=== PATIENT | female | born 1935 | race Caucasian/White ===

== ENCOUNTER 2018-06-04 08:47 | Inpatient (IN) | payer OTHER, SELFPAY ==
[2018-06-01 13:33] VITALS: BMI 27.4
[2018-06-04] VITALS (13 sets, daily range): BP systolic 101–133; BP diastolic 57–76; PULSE 16–88; RESP 12–18; TEMP 36–37.1; O2SAT 92–97; BMI 28.9
--- NOTE | 2018-06-04 | DI.RAD.S_ITS ---
PROCEDURE: XR KNEE RT 1TO2V INDICATIONS: POST OPERATIVE RIGHT KNEE TECHNIQUE: 2 view(s) of the knee acquired. COMPARISON: [facility], , KNEE 1-2 VIEWS RIGHT, 09/01/2011, 15:50. FINDINGS: Bones: Patient is status post knee joint arthroplasty. Hardware components are in expected positions. Visualized bony structures are intact. Soft tissues: Overlying postoperative changes are noted. IMPRESSION: Normal alignment after right total knee arthroplasty. A surgical drain overlies the operative bed. Dictated by: Hermlio Malin M.D. on 06/04/2018 at 15:34 Approved by: Hermilo Malin M.D. on 06/04/2018 at 15:35
[2018-06-04] MEDS: LACTATED RINGERS 1,000 ML 42 ML IV ×2 (09:58→13:22)
[2018-06-04] MEDS: PREGABALIN 75 MG CAPSULE PO (09:59)
[2018-06-04] MEDS: ACETAMINOPHEN 325 MG TABLET 975 MG PO (09:59)
[2018-06-04] MEDS: VANCOMYCIN 1,000 MG/200 ML FROZ.PIGGY 200 MG IV (10:37)
--- NOTE | 2018-06-04 10:48 | SUR.PREOP ---
Hold Meloxicam per Dr. Wills.
--- NOTE | 2018-06-04 10:52 | PM.PREOP ---
Pre-operative Note Interval Note History & Physical reviewed/Exam performed by Physician: Yes Changes to H&P: No
--- NOTE | 2018-06-04 12:31 | SUR.PREOP ---
Pt c/o severe itching to her scalp, pink scalp noted. Vanco rate decreased to 100ml/hr. Dr. Couch notified regarding symptoms and med rate change. Pt reported scalp itching improved with rate change. Vanco infusion completed.
--- NOTE | 2018-06-04 13:07 | SUR.OPER ---
Supine on padded OR bed. Pillow under head, arms secured on padded armboards <90 degree abduction. Safety belt across torso. Non-operative leg secured with tape over blanket over lower leg. Operative leg secured in De[employer]/Gerald positioner. Foam padded brace at thigh of operative leg.
[2018-06-04] MEDS: BUPIVACAINE 0.5% W/ EPI (PF) 20 ML, BUPIVACAINE LIPOSOME 266 MG, SODIUM CHLORIDE 0.9% 8... INJ (13:24)
[2018-06-04] MEDS: BUPIVACAINE 0.5% W/ EPI (PF) 10 ML, TRANEXAMIC ACID 1,000 MG, SODIUM CHLORIDE 0.9% 20 ML INJ (13:25)
[2018-06-04] MEDS: LIDOCAINE 1% W/EPI INJ 20 ML INJ (13:29)
--- NOTE | 2018-06-04 14:54 | PM.OP.1 ---
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 The nature of the procedure including the risks and benefits, alternatives, postoperative course and expected outcome were discussed and all questions answered. Consent was obtained. Operative site confirmed and marked. Surgeon: Gerry Wills Automobile Washer Steam: Luis E Curtis Anesthesia Type: General, Spinal and Local Operative Notes Findings: There was gross loosening of the tibia which had fallen into flexion. The tibial component has subsided into the bone especially posteriorly. No obvious loosening of the femoral component or patellofemoral component. Both femoral and tibial components were revised as noted below. No evidence of infection. Good bone quality. Closure Type: primary Specimen(s): none sent Prosthetic devices, grafts, tissues, transplants, or devices: Baca and [employer] lesion revision system. For femur and 3 tibia. 5 mm distal medial lateral augments on the femoral component with a 16 x 160 stem and 4 mm offset. 10 mm full augment on the tibial component with a 15 x 120 stem. Applied: implant(s) Estimated Blood Loss (mL): 75 Blood products transfused: none Tourniquet time (min): 41 Procedure in detail: The patient was taken to operative suite and given prophylactic antibiotics prior to surgery. The lateral aspect of the knee was prepped and the joint was injected with 20 cc of 1% lidocaine. The knee was then prepped and draped in usual sterile fashion. The previous 12 cm anterior incision was utilized. A medial parapatellar arthrotomy was performed. There was significant synovitis which was resected. Synovial tissue and swabs were sent for culture. There is no gross sign of infection. The femoral component did not appear to be loose. The tibial component was grossly loose and had migrated into flexion. The femoral component was removed with osteotome without significant bone loss. The tibial component was removed by hand and then remaining cement was removed with osteotome. There was no significant bone loss with implant removal of that there had been significant subsidence especially posteriorly on the tibia with significant loss of bone. The femoral canal was reamed until there was a tight fit and the proximal femur prepared. A 5 mm distal cut was made. The femur was sized. No posterior augments were acquired. The tibial canal was then reamed until a tight fit and the proximal tibia prepared. The cut took significant bone at least 12 mm anteriorly. This corresponded to approximately 6 mm posteriorly on the lateral side and 2 mm posteriorly on the medial side. Trial components were placed the knee was stable with a posteriorly constrained 15 mm tray along with a 10 mm augment of the tibial tray. The trial components were removed. The knee was copiously irrigated. The soft tissues were injected with a standard solution of Exparel and ropivacaine. The final components were cemented in place with vacuum mixed bone cement. The knee was held in extension with the trial liner until the cement had fully cured. The knee was again trialed in a 15 mm posterior stabilized tibial tray was selected. The knee was again irrigated. The extensor mechanism was closed with interrupted 1. Vicryl and a running 2. Quill suture. Subcutaneous tissue closed with 2 Vicryl and the skin with jacek. A Hemovac drain was placed prior to closure. A stefan dressing was applied. The patient tolerated hear well and was returned recovery room in good condition. Complications: none Condition: stable Disposition: PACU Plan for aftercare: Standard protocol for total knee arthroplasty. Continue antibiotics until cultures negative. DC drain at 24 hr.
--- NOTE | 2018-06-04 16:29 | SUR.PHASEI ---
1538 late entry -to room 227, bed down and locked, call light within reach, clothing bag and glasses to room. Daughter (former CS/surg employee present. Right knee dressing remains CDI, TRACEY remains on, Hemovac remains clamped. Skin warm and dry, resp even and regular, talking, tolerated ice/water. well.
[2018-06-04] MEDS: LACTATED RINGERS 1,000 ML 125 ML IV (18:09)
[2018-06-04] MEDS: HYDROCODONE/ACET 5/325 TABLET 2 TAB PO (18:09)
[2018-06-04] MEDS: METFORMIN HCL 500 MG TABLET 250 MG PO (20:48)
--- NOTE | 2018-06-04 21:56 | PC.NURSE ---
Pt desats to 87% with sleep. Placed pt on 2L per nc and sats increase to 96%.
[2018-06-04] MEDS: CEFAZOLIN 2 GM/100 ML FROZ.PIGGY IV (22:26)
--- NOTE | 2018-06-04 23:26 | PC.NURSE ---
Addendum entered and electronically signed by Olga Lidia Bryant R.N. 06/04/18 23:51: Pain charted for hydrocodone at 1800 med pass as pain in hip, it was pain in knee. Original Note: Voiding on bed tineo, Not ambulating and no PT eval yet. Bilateral LL edema +1, pain 4/10 controlled with 1 hydrocodone 5/325. HS blood glucose 171. Pt on Metformin.
[2018-06-05] VITALS (10 sets, daily range): BP systolic 111–133; BP diastolic 54–67; PULSE 64–78; RESP 16–20; TEMP 36.1–36.8; O2SAT 94–98
--- NOTE | 2018-06-05 01:14 | PC.NURSE ---
Addendum entered by Marily King R.N. 06/05/18 06:09: Complains of 6/10 pain in right knee; medicated with Vicodin but declined offer of ice pack. O2 sat mid to upper 90's so O2 removed and will monitor to assure sats remain in 90's. Original Note: Addendum entered by Marily King R.N. 06/05/18 04:00: O2 sat 98% so oxygen decreased to 1L/min Original Note: Patient asleep since shift change, now awakened for VS and assessment. Is alert and oriented. Breath sounds diminished in left mid/lower lobes and right LL. On oxygen at 2L/min with sat of 95%; continuous pulse oximetry per routine epidural orders. HR irregularly irregular. Denies nausea. BT hypoactive; denies flatus. Has voided 200cc since return from surgery; used bedpan. Denies dysuria, frequency or urgency. Is able to move self in bed with some assistance; bed tilted to right to change pressure. TRACEY dressing to right LE intact with no drainage noted; leg is also wrapped with luis a. Hemovac is intact and compressed. CMS intact bilaterally. Is able to move leg but only able to lift slightly off bed. Wearing bilateral calf SCD's. Denies pain at this time. Fall risk score is moderate; bed alarm is activated.
[2018-06-05] MEDS: LACTATED RINGERS 1,000 ML 125 ML IV (02:46)
[2018-06-05 05:32] LABS: Hematocrit 34.6 % (36-46)
[2018-06-05] MEDS: CEFAZOLIN 2 GM/100 ML FROZ.PIGGY IV ×3 (05:51→21:29)
[2018-06-05] MEDS: HYDROCODONE/ACET 5/325 TABLET 2 TAB PO ×5 (06:00→21:38)
[2018-06-05] MEDS: FENOFIBRATE 160 MG TABLET PO (08:53)
[2018-06-05] MEDS: ATORVASTATIN 20 MG TABLET PO (08:53)
[2018-06-05] MEDS: ASPIRIN EC 81 MG TABLET PO (08:53)
[2018-06-05] MEDS: METFORMIN HCL 500 MG TABLET 250 MG PO ×2 (08:53→20:09)
--- NOTE | 2018-06-05 09:34 | PM.PNPO.1 ---
Subjective Date Patient Seen: 06/05/18 Time Patient Seen: 09:34 Interval history: POD 1 s/p right knee revision arthroplasty with Dr. Wills. Patient's pain was well controlled. She has not been up with PT yet. She is voiding without difficulty. Exam Vital Signs (past 8 hours): - 06/05/18 04:48 06/05/18 08:00 06/05/18 09:00 Temperature 97.7 F 97.3 F L Pulse Rate 75 66 Respiratory Rate 16 16 Blood Pressure 121/61 111/59 L Pulse Oximetry 96 94 96 06/05/18 09:33 Temperature Pulse Rate Respiratory Rate Blood Pressure Pulse Oximetry 98 Fraction of Inspired Oxygen 21 Oxygen Delivery Method Room Air Oxygen Flow Rate 0 Narrative Exam Narrative: Patient sitting up in bed in NAD. She is alert and oriented x3. Dressing on right knee is CDI. Hemovac drain in place. She is able to actively dorsiflex and plantar flex. Sensation intact light touch throughout bilateral lower extremities. Pulses are symmetrical. Objective Labs Result Diagrams: 06/05/18 04:54 Labs: Laboratory Results - last 24 hr 06/05/18 04:54 Hgb 11.0 L Hct 34.6 L Assessment & Plan Post-op (1) S/P revision of total knee: Postoperative Procedures Operation Date: 06/04/18 11:15 Actual Procedures Side Surgeon p Total Knee Arthroplasty Revision Right Gerry Wills MD Patient will mobilize with PT today. Continue ancef 2g Q8HR until cultures are back. Remove drain today. Continue current pain medication. Patient cannot take ASA due to GI bleed in the past. Patient will DC once mobilizing safely, and pain adequately controlled either tonight or tomorrow. Quality VTE Deep Vein Thrombosis/Pulmonary Embolism Present on Admission: No
--- NOTE | 2018-06-05 09:46 | PT.IIE ---
Current Diagnoses Mechanical loosening of internal right knee prosthetic joint, subsequent encounter (06/04/18) Presence of right artificial knee joint (06/04/18) Presence of unspecified artificial knee joint (06/04/18) Surgery Performed Operation Date: 06/04/18 11:15 Actual Procedures p Total Knee Arthroplasty Revision(Right) - Gerry Wills MD Surgical History (Last Updated 06/01/18 @ 14:15 by Carly Echeverria, RN) History of arthroplasty of left knee (Acute) History of arthroplasty of right knee (Acute 09/01/11) Hx of appendectomy (Acute) Medical History (Last Updated 06/01/18 @ 14:15 by Carly Echeverria RN) Acid reflux (Acute) Arthritis (Acute) Chronic neck and back pain (Acute) Diabetes (Acute) Edema (Acute) Elbow injury (Acute) HTN (hypertension) (Acute) History of hysterectomy (Acute) Hyperlipidemia (Acute) Osteoarthritis (Acute) Physical Therapy Inpatient Evaluation/Re-Eval M1 PT/OT-IP Prior Functional Status Start: 06/05/18 10:23 Freq: NEEDED Status: Active Protocol: Document 06/05/18 09:46 [facility] (Rec: 06/05/18 10:35 [facility] [id number]) Medical Review Prior Functional Status Medical History Reviewed Yes Mobility and Gait modified indep. gait with occasional FWW usage Activities of Daily Living and IADL's modified indep. ADLs Social History Household Members spouse Living Arrangements Mobile home Number of Floors (Floors) One Floor Number of Stairs To Enter/Railing? 3 SE R ascending rail Home Environment Standard Height Toilet Tub/Shower Home Equipment Front Wheel Walker Shower Seat with Backrest Hand Held Shower Additional Social History Comment Lives with in [place] in 55+ community, daughter lives in [place] can also assist with some tasks at home . Pt underewent R TKA revision on 06/04/18, original surgery ~7 yrs ago. M2 PT-IP Current Condition Start: 06/05/18 10:23 Freq: NEEDED Status: Active Protocol: Document 06/05/18 09:46 [facility] (Rec: 06/05/18 10:35 [facility] [id number]) Physical Therapy Current Condition Current Condition Evaluation Date 06/05/18 Treatment Diagnosis R TKA revision 06/05/18, impaired activity tolerance, gait, ROM Onset Date 06/04/18 Weight Bearing Status Weight Bearing Status Weight Bear as Tolerated M3 PT-IP Subjective Start: 06/05/18 10:23 Freq: NEEDED Status: Active Protocol: Document 06/05/18 09:46 [facility] (Rec: 06/05/18 10:35 [facility] [id number]) Subjective Physical Therapy Visit Type Type Initial Evaluation Visit Start Time 09:46 Visit Stop Time 10:20 Total Visit Minutes 34 Number of FINISHER BRUSH Visits 0 Physical Therapy Visit Comments Patient Comments pt states that she is unsure what her pain rating is, states it is uncomfortable. Patient Goals she wants to go home but does not feel safe leaving today Therapy Pain Assessment Location Rt Knee Scale Used uncomfortable, does not rate Pain Behaviors Facial Grimacing M4 PT-IP Mobility and Gait Start: 06/05/18 10:23 Freq: NEEDED Status: Active Protocol: Document 06/05/18 09:46 [facility] (Rec: 06/05/18 10:35 [facility] [id number]) PT-Bed Mobility Assessment Supine to Sit Supine to Sit Minimal Assistance Scooting Scooting to Edge of Bed Contact Guard Assistance PT-Transfer Assessment Sit to and From Stand Sit to and from Stand Minimal Assistance 1 Person Assistance Use of Upper Extremities Equipment Transfer Assistive Device Gait Belt Front Wheeled Walker Transfers Transfer Destination Chair Transfer Technique Stand Step Pivot Transfer Ability Level of Assist Contact Guard Assistance Comments Mobility Comments BP 129/80 prior to mobility Gait Assessment Gait Gait Assistance Required: Contact Guard Assist Distance (Feet) 10 Assistive Devices Assistive Device Gait Belt Front Wheeled Walker Gait Deviations General Gait Pattern Antalgic Decreased Stride Length Decreased Feet Clearance Flexed Trunk Step-to Gait Wide Based Gait Factors Limiting Gait Function Factors Limiting Gait Function Decreased Activity Tolerance Decreased Strength Limited Range of Motion Pain Poor Balance Comments Gait Comments pain limiting factor with mobility, decreased step length bilaterally PT-Balance Assessment Sitting Balance and Reactions Static Sitting Balance Ability Good Dynamic Sitting Balance Ability Good Standing Balance and Reactions Static Standing Balance Ability Fair Dynamic Standing Balance Ability Fair Device Used FWW M5 PT-IP Objective Assessments Start: 06/05/18 10:23 Freq: NEEDED Status: Active Protocol: Document 06/05/18 09:46 [facility] (Rec: 06/05/18 10:35 [facility] [id number]) Orientation Orientation/Cognition Level of Alertness Alert Gross Range of Motion Lower Extremity ROM Assessment Right Impaired Impairments 3-80 degrees R knee AROM Strength Comments Strength Comments unable to perform SLR on the R ; no formal MMT due to recent surgery but knee extension at least 3/5 on the R, able to activate quads for QS Sensation Assessment Sensation Gross Sensation WNL M6 PT-IP Treatment Start: 06/05/18 10:23 Freq: NEEDED Status: Active Protocol: Document 06/05/18 09:46 [facility] (Rec: 06/05/18 10:35 [facility] [id number]) Physical Therapy Treatment Exercises Exercises Ankle Pumps Quad Sets Education Education Provided Weight Bearing Status Post-Op Packet Safety Other Treatments Other Treatment Performed pt refused ice for R knee stating I don't like ice. M7 PT-IP Assessment and Plan Start: 06/05/18 10:23 Freq: NEEDED Status: Active Protocol: Document 06/05/18 09:46 [facility] (Rec: 06/05/18 10:35 [facility] [id number]) PT Summary Assessment and Plan Potential Rehabilitation Potential Good Status of Condition at Evaluation Stable Summary Impairments Pain ROM Strength Balance Bed Mobility Transfers Gait Activity Tolerance Assessment Summary POD #1 R TKA revision. Pt limited with ambulation this session to only 10 ft, due to pain and impaired activity tolerance. Pt requires verbal cuing for proper gait sequencing to decrease pain response in standing. Pt at this time is unable to tolerate household distance ambulation, and would not tolerate or be able to manage stairs safely at this time. It is likely that pt will not be safe to d/c today, but if she progresses gradually and well she may be able to d/c tomorrow if performs stairs and safe household distances. Pt unable to manage bed mobility without manual assistance lifting the RLE. Goals Bed Mobility Goal Standby Assistance Transfer Goal Standby Assistance Gait Goal Standby Assistance Gait Distance 150 Other Goals up/down 3 steps with R rail ascending and CGA Days to Meet Goals 3 Frequency of Treatment Frequency Of Treatment Twice a Day Treatment Plan Physical Therapy Treatment Plan Bed Mobility Training Transfer Training Gait Training Therapeutic Exercise Balance Retraining Post Op Education Discharge Planning Hot or Cold Pack Neuromuscular Re-ed Other Recommendations and Next Treatment prog. gait, bed mobility; Focus stair training prior to d/c. Recommendations To Nursing Amount of Assist Needed 1 Person Assist Discharge Recommendations PT Discharge Recommendations Home with Assistance Outpatient PT
[2018-06-05] MEDS: LISINOPRIL 10 MG TABLET 30 MG PO (11:44)
[2018-06-05] MEDS: SODIUM CHLORIDE 0.9% 250 ML 21 ML IV (14:35)
--- NOTE | 2018-06-05 14:45 | PT.IPTN ---
Current Diagnoses Mechanical loosening of internal right knee prosthetic joint, subsequent encounter (06/04/18) Presence of right artificial knee joint (06/04/18) Presence of unspecified artificial knee joint (06/04/18) Surgery Performed Operation Date: 06/04/18 11:15 Actual Procedures p Total Knee Arthroplasty Revision(Right) - Gerry Wills MD Physical Therapy Treatment Note M2 PT-IP Current Condition Start: 06/05/18 10:23 Freq: NEEDED Status: Active Protocol: Document 06/05/18 09:46 [facility] (Rec: 06/05/18 10:35 [facility] [id number]) Physical Therapy Current Condition Current Condition Evaluation Date 06/05/18 Treatment Diagnosis R TKA revision 06/05/18, impaired activity tolerance, gait, ROM Onset Date 06/04/18 Weight Bearing Status Weight Bearing Status Weight Bear as Tolerated M3 PT-IP Subjective Start: 06/05/18 10:23 Freq: NEEDED Status: Active Protocol: Document 06/05/18 14:45 [facility] (Rec: 06/05/18 15:11 [facility] [id number]) Subjective Physical Therapy Visit Type Type Treatment Note Visit Start Time 14:45 Visit Stop Time 15:06 Total Visit Minutes 21 Number of AUTISM TEACHER Visits 0 Physical Therapy Visit Comments Patient Comments pt states that pain is still present but willing to try and walk M4 PT-IP Mobility and Gait Start: 06/05/18 10:23 Freq: NEEDED Status: Active Protocol: Document 06/05/18 14:45 [facility] (Rec: 06/05/18 15:11 [facility] [id number]) PT-Transfer Assessment Sit to and From Stand Sit to and from Stand Contact Guard Assistance 1 Person Assistance Use of Upper Extremities Equipment Transfer Assistive Device Gait Belt Front Wheeled Walker Transfers Transfer Destination Chair Transfer Technique Stand Step Pivot Transfer Ability Level of Assist Contact Guard Assistance Gait Assessment Gait Gait Assistance Required: Contact Guard Assist Distance (Feet) 6 Assistive Devices Assistive Device Gait Belt Front Wheeled Walker Gait Deviations General Gait Pattern Antalgic Decreased Stride Length Decreased Feet Clearance Flexed Trunk Step-to Gait Wide Based Gait Factors Limiting Gait Function Factors Limiting Gait Function Decreased Activity Tolerance Decreased Strength Limited Range of Motion Pain Poor Balance Comments Gait Comments pt reported feeling sick, pt sat back down in chair and session stopped at that time. Ice given to R knee, chair alarm on. M5 PT-IP Objective Assessments Start: 06/05/18 10:23 Freq: NEEDED Status: Active Protocol: Document 06/05/18 09:46 [facility] (Rec: 06/05/18 10:35 [facility] [id number]) Orientation Orientation/Cognition Level of Alertness Alert Gross Range of Motion Lower Extremity ROM Assessment Right Impaired Impairments 3-80 degrees R knee AROM Strength Comments Strength Comments unable to perform SLR on the R ; no formal MMT due to recent surgery but knee extension at least 3/5 on the R, able to activate quads for QS Sensation Assessment Sensation Gross Sensation WNL M6 PT-IP Treatment Start: 06/05/18 10:23 Freq: NEEDED Status: Active Protocol: Document 06/05/18 14:45 [facility] (Rec: 06/05/18 15:11 [facility] [id number]) Physical Therapy Treatment Exercises Exercises Ankle Pumps Quad Sets Education Education Provided Safety M7 PT-IP Assessment and Plan Start: 06/05/18 10:23 Freq: NEEDED Status: Active Protocol: Document 06/05/18 14:45 [facility] (Rec: 06/05/18 15:11 [facility] [id number]) PT Summary Assessment and Plan Summary Assessment Summary POD #1 R TKA revision. Pt still with c/o pain at rest, given 0.25 mg dilaudid and reported feeling sick/ill therefore returned back to sitting. Pt was ambulating with CGA prior, but not able to continue. Pt is still not able to ambulate household distances, and not safe to return home at this time today . Goals Bed Mobility Goal Standby Assistance Transfer Goal Standby Assistance Gait Goal Standby Assistance Gait Distance 150 Other Goals up/down 3 steps with R rail ascending and CGA Days to Meet Goals 3 Frequency of Treatment Frequency Of Treatment Twice a Day Treatment Plan Other Recommendations and Next Treatment prog. gait, bed mobility; Focus stair training prior to d/c. Recommendations To Nursing Amount of Assist Needed 1 Person Assist Discharge Recommendations PT Discharge Recommendations Home with Assistance Outpatient PT
[2018-06-05] MEDS: HYDROMORPHONE 0.5 MG INJ IV (14:51)
--- NOTE | 2018-06-05 15:18 | PC.NURSE ---
CMS intact. Pain controlled with po vicodin throughout shift w/ complaints on breakthrough pain this afternoon. 0.25mg Dilaudid given prior to P.T tx with some nausea s/p. Ice pack applied to rt knee. Hemovac d/c and pressure dressing applied. VSS, WCTM.
--- NOTE | 2018-06-05 16:47 | CM.DANOTE ---
Discharge Planning/Care Management DCP: assessment: Case received, EMR reviewed. Discuss in Team Rounds this morning. Pt is an 82 year old female who admitted to care of Surgeon: Dr. Wills for a planned: RTKA revision. Payer: [employer] INPT admission status: Confirmed by UR PAOLO Krishna. PT was ordered and PT Mario worked with pt 2x today but both sessions were interrupted by pt's nausea. Due to caseload triage need: Plan to check in tomorrow after Team Rounds to meet with pt and follow for d/c issues and options. Will discuss in more detail with PT. It is noted that pt lives in a mobile home with her spouse. Her daughter Yojana in [place] is part of her contact information. CM Discharge Assessment Start: 06/05/18 16:46 Freq: Status: Active Protocol: Document 06/05/18 16:46 ITV (Rec: 06/05/18 16:46 ITV [id number]) Discharge Planning Assessment Advance Directives? No History Provided By Patient Prior Living Arrangements Mobile home Household Members spouse Review Status In Process Next Review Type Continued Stay Review Pre-Anesthesia Assessment Start: 06/01/18 13:33 Freq: Status: Complete Protocol: Document 06/01/18 13:33 CAB (Rec: 06/01/18 14:29 CAB [id number]) Pre-Anesthesia Assessment Patient Also Known As Garber (AKA) Patient Information Reviewed Via Phone Assessment Assessment Completed With Patient Consent for Planned Operative Procedure( Yes s) Verified H&P Completed Within 30 Days Yes Diagnostic Results CBC EKG Primary Care Provider Gerry Garcia Seen Specialist in Last 12 Months Yes Specialist Seen Orthopedist Primary Language Nauruan Dyer And Washer Required No Height 165.1 cm Weight 74.843 kg Body Mass Index (BMI) 27.4 Visual Assist Glasses Dentition Type Full- Upper & Lower Hx Anesthesia Reactions No Hx Family Anesthesia Reaction No Hx Malignant Hyperthermia No Hx Blood Transfusions Yes: w/GI Bleed Hx Blood Transfusion Reaction No Anesthesia Review Requested No Puller Over No Alcohol Intake Frequency Other: None Smoking Status Former smoker how long ago did patient quit smoking Quit age 30s Substance Use Type does not use Pain Present Pain Reported Musculoskeletal Symptoms Abnormal Gait Back Pain Difficulty Walking Joint Pain Neck Pain History of Falling (Recent or History of No ) Patient is completely paralyzed or No completely immobile Mental Status Oriented to own ability Is patient on oxygen? No Does patient have SCANLON/SOB No Hx Sleep Apnea No Currently Taking a Beta Juan No Can You Climb a Flight of Stairs Without Yes SOB Hx Chest Pain No Hx SOB No Hx Syncope or Dizziness No Anti-Coagulant Therapy No Has a Meat Processor No Cardiac Testing No Hx Pacemaker/ICD No Pacemaker Rep Required? No Cardiac Clearance Received Not Applicable Diet Type At Home Regular dysphagia No Bladder Pattern Frequency Incontinent Nocturia Urgency Urinary Catheter Present No Hx Urinary Self Catheterization No Diabetes Yes: Pt does not check blood sugars Patient No Lactating No Hx Drug Resistant Organism No Presence of External or Internal Medical No Devices Have you traveled outside the [facility] in the last 30 days? Marital Status Lives With spouse Prior Living Arrangements Mobile home Number of Floors (Floors) One Floor Support System Child/Children Spouse Does the Patient Have Assistance After Yes Surgery Patient Discharge Plan Description Return Home Comment Pt not advised on length of stay per surgeon's office Feels Safe in Current Environment Yes Been Physically Hurt or Threatened By a No Person in Current Environment Do you have thoughts of harming yourself None or others? Are you currently considering suicide? No Do you have a plan to hurt yourself or No Plan others? Do You Have Any Spiritual Beliefs That No May Affect Your HC Choices? Do You Have Any Cultural Practices That No May Affect Your HC Choices? Spiritual Referral In-House Recreational Director Comment Worship Who Can We Speak to About Patient's Care Family, friends Identifying Code for Release of Patient Declines to issue Information Health Care Proxy/Next of Kin Yojana Kumar (daughter)Rodolfo ( ) Health Care Proxy Phone Number Yojana: [phone] Don: Emergency Contact Name Yojana Kumar (daughter)Rodolfo ( ) Emergency Contact Phone Number Yojana: [phone] Don: PAC Instructions Do not shave/clip surgical site Durable medical equipment Medications to take/avoid Nasal antibiotic No ETOH/petroleum product on skin DOS NPO Post-op transportation Pre-surgical wash Sturdy shoes/comfortable clothes Do not bring valuables and remove jewelry
--- NOTE | 2018-06-05 17:54 | PC.NURSE ---
Addendum entered by Cici Baca R.N. 06/05/18 21:01: Pt has relatively uneventful evening. Dsg to knee CDI, HL intact/patent. Med @ 1800 for discomfort w/good relief. Satisfactory post op course. Call lgit w/in reach, bed alarm on for pt safety. Continue w/ plan of care. Original Note: Pt sitting in chair. Lungs diminished at bases, SpO2 95% RA Dsg to right knee CDI. HL intact/patent. Stable post op course. Call light w/in reach, chair alarm on for pt safety.
[2018-06-06] VITALS (10 sets, daily range): BP systolic 113–149; BP diastolic 60–90; PULSE 72–90; RESP 16–21; TEMP 36.3–37.1; O2SAT 93–96
[2018-06-06] MEDS: HYDROCODONE/ACET 5/325 TABLET 2 TAB PO ×2 (03:17→07:26)
--- NOTE | 2018-06-06 03:46 | PC.NURSE ---
Addendum entered by Marily King R.N. 06/06/18 07:59: Patient was medicated with NTG x 2 with resolution of chest pain at 0713 and then became nauseated requiring administration of Zofran. RT here to do EKG and Dr Perkins in to see patient. Chest pain returned during Dr Perkins's exam so was given 3rd NTG along with Vicodin for complaint of knee pain. Nausea resolved at that time. Original Note: Addendum entered by Marily King R.N. 06/06/18 07:07: Complaining of chest pain under left breast with 4/10 severity, no radiation but is persistent. HR 78 with BP of 136/67 and RA sat of 93%. Denies SOB. Dr Wills informed and ordered hospitalist consult. Dr Perkins informed and orders received for EKG, lab and NTG. Dr Wills then called again and transferred call to Dr Perkins for MD to MD consult request. Original Note: Addendum entered by Marily King R.N. 06/06/18 06:38: Slept most of shift. States pain back to 4/10 but too early to give additional Vicodin; patient verbalizes tolerating pain but agreeable to having ice applied. Original Note: Patient is alert and oriented. Breath sounds diminished but CTA with RA sat of 96%. HRR. Denies nausea. BT present and is passing flatus. Dribbles urine but denies dysuria, frequency or urgency; using bedpan at night and voided cloudy yellow urine. Able to move self in bed. Reportedly gets up with 1 assist + walker but not up tonight. CMS intact. TRACEY dressing intact with no drainage noted; right leg is also wrapped with luis a. Still unable to lift leg off bed. Complains of 4/10 pain in right knee so medication with Vicodin per patient request but she declined ice pack. SCD's placed at shift change. Fall risk score is moderate; bed alarm is activated.
[2018-06-06] MEDS: CEFAZOLIN 2 GM/100 ML FROZ.PIGGY IV ×3 (06:32→23:10)
[2018-06-06] MEDS: SODIUM CHLORIDE 0.9% FLUSH 10 ML IV ×5 (06:33→23:10)
[2018-06-06] MEDS: NITROGLYCERIN 0.4 MG SL TAB SL ×3 (07:03→07:28)
[2018-06-06] MEDS: ONDANSETRON 4 MG/2 ML INJ IV (07:18)
[2018-06-06 07:55] LABS: Troponin I < 0.012 ng/mL (0.01-0.034)
[2018-06-06] MEDS: LISINOPRIL 10 MG TABLET 30 MG PO (09:45)
[2018-06-06] MEDS: ASPIRIN EC 81 MG TABLET PO (09:45)
[2018-06-06] MEDS: PANTOPRAZOLE 40 MG TABLET PO (09:45)
--- NOTE | 2018-06-06 10:54 | PM.PNPO.1 ---
Subjective Date Patient Seen: 06/06/18 Time Patient Seen: 10:54 Interval history: The patient reports she is doing well now. She did have chest pain early this morning was seen by Dr. Perkins, the hospitalist. Her x-ray and troponin are negative. The chest pain is thought to be epigastric in nature but a repeat troponin is scheduled for this afternoon. Exam Vital Signs (past 8 hours): - 06/06/18 03:00 06/06/18 06:55 06/06/18 07:03 Temperature 98.1 F Pulse Rate 76 78 78 Respiratory Rate 18 18 Blood Pressure 136/81 136/67 136/67 Pulse Oximetry 96 93 06/06/18 07:25 06/06/18 08:01 06/06/18 08:13 Temperature Pulse Rate 83 83 72 Respiratory Rate Blood Pressure 113/60 113/90 149/77 H Pulse Oximetry Fraction of Inspired Oxygen 21 Oxygen Delivery Method Room Air Oxygen Flow Rate 0 Narrative Exam Narrative: Patient is alert and oriented. She reports that she is quite comfortable with both her chest and knee today. She has not yet been up with physical therapy. Dressing is dry and intact. Objective Labs Result Diagrams: 06/05/18 04:54 Labs: Laboratory Results - last 24 hr 06/06/18 06:20 Troponin I < 0.012 Assessment & Plan Post-op Postoperative Procedures Operation Date: 06/04/18 11:15 Actual Procedures Side Surgeon p Total Knee Arthroplasty Revision Right Gerry Wills MD Postoperative status narrative: The patient's chest pain has resolved and does not appear to be cardiac. A repeat troponin is scheduled for this afternoon. She will proceed with physical therapy. Probable discharge tomorrow if there are no cardiac concerns. Quality VTE Deep Vein Thrombosis/Pulmonary Embolism Present on Admission: No
--- NOTE | 2018-06-06 11:02 | PM.CN ---
History of Present Illness Date Patient Seen: 06/06/18 Chief complaint: Right Total Knee Arthroplasty Revision [id number] Reason for consult: chest pain Requesting provider: Gerry Wills Narrative: Shirlene Shannon is an 82-year-old female with a past medical history significant for hypertension, hyperlipidemia, diabetes mellitus type 2, non-insulin using and controlled on oral antihyperglycemic, and former smoker who underwent a right total knee arthroplasty revision on 06/04/[address] Wills. The operation was successful, under 2 hr, and there was very little blood loss. She is postoperative day of day #2. she is on aspirin 81 mg daily for DVT prophylaxis and has had GI irritation in the past with this medication. The hospitalist team was consulted for abrupt onset chest pain this morning at 0700. The patient is resting in bed and appears mildly uncomfortable. She reports sharp chest pain under her left breast that was relieved with sublingual nitroglycerin x2. She endorses nausea currently which is resolving after Zofran administration. During my interview she began having similar chest pain and was given another nitroglycerin with relief. She reports the pain as sharp in quality. The pain does not radiate. She has had no other associated symptoms other than nausea which she believes is related to the nitroglycerin but possibly rather aspirin and GI upset. She denies headache, chest pressure, shortness of breath, abdominal pain, vomiting, pain in her jaw, neck, upper extremities, or back. She has never had a heart attack before. An EKG was performed and did not demonstrate any acute ischemic changes such as ST elevation or depression. Troponin I was sent stat and came back negative at < 0.012. Her chest pain has resolved completely after hydrocodone administration. Will plan to repeat troponin in 6 hr and start PPI for possible aspirin induced gastritis. If her chest pain recurs we may consider GI cocktail. Of note, she also has a significant cardiac family history with both of her brothers dying of [place] at 42 and 62 years of age. [facility] Medical History Acid reflux (Acute) Arthritis (Acute) Chronic neck and back pain (Acute) Diabetes (Acute) Edema (Acute) Elbow injury (Acute) HTN (hypertension) (Acute) History of hysterectomy (Acute) Hyperlipidemia (Acute) Osteoarthritis (Acute) Surgical History History of arthroplasty of left knee (Acute) History of arthroplasty of right knee (Acute 09/01/11) Hx of appendectomy (Acute) Status post revision of total replacement of right knee (Acute) Family History Brother Heart attack Brother Heart attack Social History household members: spouse Smoking Status: Former smoker Family History Brother Heart attack Brother Heart attack Social History household members: spouse Smoking Status: Former smoker Meds Home Medications Medication Instructions Recorded Confirmed Type hydrocodone-acetaminophen 1 tab PO Q4-6H PRN #0 08/20/11 06/04/18 History metformin 250 mg PO BID #0 08/20/11 06/04/18 History multivitamin 1 cap PO QAM #0 08/20/11 06/04/18 History ranitidine HCl 75 mg PO DAILY PRN #0 09/01/11 06/04/18 History atorvastatin 20 mg PO DAILY 06/01/18 06/04/18 History fenofibrate 160 mg PO DAILY 06/01/18 06/04/18 History lisinopril 30 mg PO DAILY 06/01/18 06/04/18 History Allergies Allergy/AdvReac Type Severity Reaction Status Date / Time codeine Allergy Mild Nausea/Rash Verified 06/04/18 13:03 naproxen [From Aleve] Allergy Unknown Hives Verified 06/04/18 10:48 aspirin AdvReac Severe GI Bleed, Verified 06/04/18 09:26 stomach pain mupirocin AdvReac Severe Diarrhea Verified 06/04/18 09:39 oxycodone AdvReac Severe Vomiting Verified 06/04/18 09:26 Review of Systems Review of Systems A 10 system comprehensive review of systems was conducted with the patient and found to be negative except as above in the History of Present Illness. Exam Vital Signs (past 8 hours): - 06/06/18 06:55 06/06/18 07:03 06/06/18 07:25 Pulse Rate 78 78 83 Respiratory Rate 18 Blood Pressure 136/67 136/67 113/60 Pulse Oximetry 93 06/06/18 08:01 06/06/18 08:13 Pulse Rate 83 72 Respiratory Rate Blood Pressure 113/90 149/77 H Pulse Oximetry Fraction of Inspired Oxygen 21 Oxygen Delivery Method Room Air Oxygen Flow Rate 0 Narrative Exam Narrative: General: Elderly female sitting in bed, mildly uncomfortable but in no acute distress, well-developed, well-nourished, appropriately interactive. HEENT: Normocephalic, atraumatic. External ears without defect. Pupils equal, round, and reactive to light. Anicteric sclerae, moist conjunctivae, and no lid lag. Oropharynx free of erythema and cobble stoning with moist mucosa. Neck: Supple with full range of motion. No jugular venous distension. No bruits. No lymphadenopathy or thyromegaly. Cardiovascular: Regular rate and rhythm without murmurs, rubs, or gallops appreciated Pulmonary: Clear to auscultation bilaterally without crackles, wheezes, or rhonchi. Normal respiratory effort with no use of accessory muscles. Abdomen: Soft, bowel sounds present, nontender, nondistended. No hepatosplenomegaly or masses appreciated. Extremities: No clubbing, cyanosis, or edema. Right knee with dressing in place C/D/I. Skin: Normal temperature, turgor, and texture; no rash, ulcers, or subcutaneous nodules appreciated. Neurological: Cranial nerves grossly intact. Psychiatric: Normal mood and affect. Alert and oriented to person, place, and time. Objective Labs Result Diagrams: 06/05/18 04:54 Labs: Laboratory Results - last 24 hr 06/06/18 06:20 Troponin I < 0.012 Assessment & Plan Assessment & Plan narrative: Shirlene Shannon is an 82-year-old female with a past medical history significant for hypertension, hyperlipidemia, diabetes mellitus type 2, non-insulin using and controlled on oral antihyperglycemic, and former smoker who underwent a right total knee arthroplasty revision on 06/04/[address] Wills. The operation was successful, under 2 hr, and there was very little blood loss. She is postoperative day of day #2. she is on aspirin 81 mg daily for DVT prophylaxis and has had GI irritation in the past with this medication. The hospitalist team was consulted for abrupt onset chest pain this morning at 0700. 1. Acute atypical chest pain, not present on admission. Now resolved. -Patient developed acute left-sided sharp chest pain relieved with nitroglycerin and hydrocodone. -Likely secondary to GI upset from aspirin as patient has had this in the past and responded to nitroglycerin (esophageal relaxation) rather than musculoskeletal. Does not appear to be cardiac. -Per Dr. Wills, the patient has a history of GI upset with aspirin use in the past. Continue aspirin 81 mg daily for DVT prophylaxis and in addition added Protonix 40 mg daily for GI upset. -EKG did not demonstrate any acute ischemic changes such as ST elevation or depression. -Troponin x2 negative at <0.012. -Ordered CBC, BMP and magnesium level, pending. Will replete any electrolyte deficiencies as needed. -Will consider GI cocktail if pain recurs. 2. status post right knee revision, not present on admission. Stable. Thank you for consulting our services. We will follow along with you.
[2018-06-06] MEDS: HYDROMORPHONE 0.5 MG INJ IV (11:12)
--- NOTE | 2018-06-06 11:12 | P.CONS_ITS ---
History of Present Illness Date Patient Seen: 06/06/18 Chief complaint: Right Total Knee Arthroplasty Revision [id number] Reason for consult: chest pain Requesting provider: Gerry Wills Narrative: Shirlene Shannon is an 82-year-old female with a past medical history significant for hypertension, hyperlipidemia, diabetes mellitus type 2, non-insulin using and controlled on oral antihyperglycemic, and former smoker who underwent a right total knee arthroplasty revision on 06/04/[address] Wills. The operation was successful, under 2 hr, and there was very little blood loss. She is postoperative day of day #2. she is on aspirin 81 mg daily for DVT prop hylaxis and has had GI irritation in the past with this medication. The hospitalist team was consulted for abrupt onset chest pain this morning at 0700. The patient is resting in bed and appears mildly uncomfortable. She reports sharp chest pain under her left breast that was relieved with sublingual nitroglycerin x2. She endorses nausea currently which is resolving after Zofran administration. During my interview she began having similar chest pain and was given another nitroglycerin with relief. She reports the pain as sharp in quality. The pain does not radiate. She has had no other associated symptoms other than nausea which she believes is related to the nitroglycerin but poss ibly rather aspirin and GI upset. She denies headache, chest pressure, shortness of breath, abdominal pain, vomiting, pain in her jaw, neck, upper extremities, or back. She has never had a heart attack before. An EKG was performed and did not demonstrate any acute ischemic changes such as ST elev ation or depression. Troponin I was sent stat and came back negative at < 0.012. Her chest pain has resolved completely after hydrocodone administration. Will plan to repeat troponin in 6 hr and start PPI for possible aspirin induced gastritis. If her chest pain recurs we may consider GI cocktail. Of note, she also has a significant cardiac family history with both of her brothers dying of [place] at 42 and 62 years of age. [facility] Medical History Acid reflux (Acute) Arthritis (Acute) Chronic neck and back pain (Acute) Diabetes (Acute) Edema (Acute) Elbow injury (Acute) HTN (hypertension) (Acute) History of hysterectomy (Acute) Hyperlipidemia (Acute) Osteoarthritis (Acute) Surgical History History of arthroplasty of left knee (Acute) History of arthroplasty of right knee (Acute 09/01/11) Hx of appendectomy (Acute) Status post revision of total replacement of right knee (Acute) Family History Brother Heart attack Brother Heart attack Social History household members: spouse Smoking Status: Former smoker Family History Brother Heart attack Brother Heart attack Social History household members: spouse Smoking Status: Former smoker Meds Home Medications Medication Instructions Recorded Confirmed Type hydrocodone-acetaminophen 1 tab PO Q4-6H PRN #0 08/20/11 06/04/18 History metformin 250 mg PO BID #0 08/20/11 06/04/18 History multivitamin 1 cap PO QAM #0 08/20/11 06/04/18 History ranitidine HCl 75 mg PO DAILY PRN #0 09/01/11 06/04/18 History atorvastatin 20 mg PO DAILY 06/01/18 06/04/18 History fenofibrate 160 mg PO DAILY 06/01/18 06/04/18 History lisinopril 30 mg PO DAILY 06/01/18 06/04/18 History Allergies Allergy/AdvReac Type Severity Reaction Status Date / Time codeine Allergy Mild Nausea/Rash Verified 06/04/18 13:03 naproxen [From Aleve] Allergy Unknown Hives Verified 06/04/18 10:48 aspirin AdvReac Severe GI Bleed, Verified 06/04/18 09:26 stomach pain mupirocin AdvReac Severe Diarrhea Verified 06/04/18 09:39 oxycodone AdvReac Severe Vomiting Verified 06/04/18 09:26 Review of Systems Review of Systems A 10 system comprehensive review of systems was conducted with the patient and found to be negative except as above in the History of Present Illness. Exam Vital Signs (past 8 hours): - 06/06/18 06:55 06/06/18 07:03 06/06/18 07:25 Pulse Rate 78 78 83 Respiratory Rate 18 Blood Pressure 136/67 136/67 113/60 Pulse Oximetry 93 06/06/18 08:01 06/06/18 08:13 Pulse Rate 83 72 Respiratory Rate Blood Pressure 113/90 149/77 H Pulse Oximetry Fraction of Inspired Oxygen 21 Oxygen Delivery Method Room Air Oxygen Flow Rate 0 Narrative Exam Narrative: General: Elderly female sitting in bed, mildly uncomfortable but in no acute distress, well-developed, well-nourished, appropriately interactive. HEENT: Normocephalic, atraumatic. External ears without defect. Pupils equal, round, and reactive to light. Anicteric sclerae, moist conjunctivae, and no lid lag. Oropharynx free of erythema and cobble stoning with moist mucosa. Neck: Supple with full range of motion. No jugular venous distension. No bruits. No lymphadenopathy or thyromegaly. Cardiovascular: Regular rate and rhythm without murmurs, rubs, or gallops appreciated Pulmonary: Clear to auscultation bilaterally without crackles, wheezes, or rhonchi. Normal respiratory effort with no use of accessory muscles. Abdomen: Soft, bowel sounds present, nontender, nondistended. No hepatosplenomegaly or masses appreciated. Extremities: No clubbing, cyanosis, or edema. Right knee with dressing in place C/D/I. Skin: Normal temperature, turgor, and texture; no rash, ulcers, or subcutaneous nodules appreciated. Neurological: Cranial nerves grossly intact. Psychiatric: Normal mood and affect. Alert and oriented to person, place, and time. Objective Labs Result Diagrams: 06/05/18 04:54 Labs: Laboratory Results - last 24 hr 06/06/18 06:20 Troponin I < 0.012 Assessment & Plan Assessment & Plan narrative: Shirlene Shannon is an 82-year-old female with a past medical history significant for hypertension, hyperlipidemia, diabetes mellitus type 2, non-insulin using and controlled on oral antihyperglycemic, and former smoker who underwent a right total knee arthroplasty revision on 06/04/[address] Wills. The operation was successful, under 2 hr, and there was very little blood loss. She is postoperative day of day #2. she is on aspirin 81 mg daily for DVT pro phylaxis and has had GI irritation in the past with this medication. The hospitalist team was consulted for abrupt onset chest pain this morning at 0700. 1. Acute atypical chest pain, not present on admission. Now resolved. -Patient developed acute left-sided sharp chest pain relieved with nitroglycerin and hydrocodone. -Likely secondary to GI upset from aspirin as patient has had this in the past and responded to nitroglycerin (esophageal relaxation) rather than musculoskeletal. Does not appear to be cardiac. -Per Dr. Wills, the patient has a history of GI upset with aspirin use in the past. Continue aspirin 81 mg daily for DVT prophylaxis and in addition added Protonix 40 mg daily for GI upset. -EKG did not demonstrate any acute ischemic changes such as ST elevation or dep ression. -Troponin x2 negative at <0.012. -Ordered CBC, BMP and magnesium level, pending. Will replete any electrolyte deficiencies as needed. -Will consider GI cocktail if pain recurs. 2. status post right knee revision, not present on admission. Stable. Thank you for consulting our services. We will follow along with you.
[2018-06-06] MEDS: HYDROMORPHONE 2 MG TABLET PO ×3 (11:26→19:52)
[2018-06-06] MEDS: FENOFIBRATE 160 MG TABLET PO (11:27)
[2018-06-06] MEDS: ATORVASTATIN 20 MG TABLET PO (11:27)
[2018-06-06] MEDS: METFORMIN HCL 500 MG TABLET 250 MG PO ×2 (11:27→19:53)
--- NOTE | 2018-06-06 11:56 | PT.IPTN ---
Current Diagnoses Mechanical loosening of internal right knee prosthetic joint, subsequent encounter (06/04/18) Presence of right artificial knee joint (06/04/18) Presence of unspecified artificial knee joint (06/04/18) Surgery Performed Operation Date: 06/04/18 11:15 Actual Procedures p Total Knee Arthroplasty Revision(Right) - Gerry Wills MD Physical Therapy Treatment Note M2 PT-IP Current Condition Start: 06/05/18 10:23 Freq: NEEDED Status: Active Protocol: Document 06/05/18 09:46 RCC (Rec: 06/05/18 10:35 RCC [id number]) Physical Therapy Current Condition Current Condition Evaluation Date 06/05/18 Treatment Diagnosis R TKA revision 06/05/18, impaired activity tolerance, gait, ROM Onset Date 06/04/18 Weight Bearing Status Weight Bearing Status Weight Bear as Tolerated M3 PT-IP Subjective Start: 06/05/18 10:23 Freq: NEEDED Status: Active Protocol: Document 06/06/18 11:02 CLB (Rec: 06/06/18 11:56 CLB [id number]) Subjective Physical Therapy Visit Type Type Patient Refusal Notes Pt refused, pt with increased pain had just been up with DISTRICT LEADER to use BR and was sitting in chair crying. RN in process of getting pn meds.
[2018-06-06 13:14] LABS: Troponin I < 0.012 ng/mL (0.01-0.034)
--- NOTE | 2018-06-06 15:44 | PC.NURSE ---
0700 start of shift Pt with c/o chest pain , EKG in process and nitro given per verbal orders at bedside. Trop checked, negative and will monitor 6 hours from AM draw. Ortho, Dr Wills saw Pt and agreeable to d/c in am if no cardiac event. Medicating for pain PRN No further c/o CP. Alert and making needs known.
--- NOTE | 2018-06-06 15:50 | PT.IPTN ---
Current Diagnoses Mechanical loosening of internal right knee prosthetic joint, subsequent encounter (06/04/18) Presence of right artificial knee joint (06/04/18) Presence of unspecified artificial knee joint (06/04/18) Surgery Performed Operation Date: 06/04/18 11:15 Actual Procedures p Total Knee Arthroplasty Revision(Right) - Gerry Wills MD Physical Therapy Treatment Note M2 PT-IP Current Condition Start: 06/05/18 10:23 Freq: NEEDED Status: Active Protocol: Document 06/05/18 09:46 RCC (Rec: 06/05/18 10:35 RCC [id number]) Physical Therapy Current Condition Current Condition Evaluation Date 06/05/18 Treatment Diagnosis R TKA revision 06/05/18, impaired activity tolerance, gait, ROM Onset Date 06/04/18 Weight Bearing Status Weight Bearing Status Weight Bear as Tolerated M3 PT-IP Subjective Start: 06/05/18 10:23 Freq: NEEDED Status: Active Protocol: Document 06/06/18 14:00 CLB (Rec: 06/06/18 15:50 CLB [id number]) Subjective Physical Therapy Visit Type Type Treatment Note Visit Start Time 14:00 Visit Stop Time 14:24 Total Visit Minutes 24 Number of GASOLINE ENGINE INSPECTOR Visits 1 Physical Therapy Visit Comments Patient Comments Pt needing to use BR. Therapy Pain Assessment Pain When Pain Assessed During Mobility Pain Present Pain Present Pain Reported Location Rt Knee Intensity 7 Scale Used Numeric (1 - 10) Pain Behaviors Facial Grimacing Guarding Moaning Restlessness Wincing Pain Management Techniques Apply Cold Elevation Modification of Treatment Timing of Activity with Medications M4 PT-IP Mobility and Gait Start: 06/05/18 10:23 Freq: NEEDED Status: Active Protocol: Document 06/06/18 14:00 CLB (Rec: 06/06/18 15:50 CLB [id number]) PT-Bed Mobility Assessment Sit to Supine Sit to Supine Minimal Assistance 1 Person Assistance Head of Bed Elevated Scooting Scooting Up and Down in Bed Standby Assistance PT-Transfer Assessment Sit to and From Stand Sit to and from Stand Contact Guard Assistance 1 Person Assistance Use of Upper Extremities Equipment Transfer Assistive Device Gait Belt Front Wheeled Walker Transfers Transfer Destination Bed Chair Toilet Transfer Technique Stand Step Pivot Transfer Ability Level of Assist Contact Guard Assistance Gait Assessment Gait Gait Assistance Required: Contact Guard Assist Distance (Feet) 10 Assistive Devices Assistive Device Gait Belt Front Wheeled Walker Gait Deviations General Gait Pattern Antalgic Decreased Stride Length Decreased Feet Clearance Flexed Trunk Step-to Gait Wide Based Gait Factors Limiting Gait Function Factors Limiting Gait Function Decreased Activity Tolerance Decreased Strength Limited Range of Motion Pain Poor Balance Comments Gait Comments Pt ambulated from chair to toilet then to bed. Pt refused to walk further due to pain. M5 PT-IP Objective Assessments Start: 06/05/18 10:23 Freq: NEEDED Status: Active Protocol: Document 06/05/18 09:46 RCC (Rec: 06/05/18 10:35 RCC [id number]) Orientation Orientation/Cognition Level of Alertness Alert Gross Range of Motion Lower Extremity ROM Assessment Right Impaired Impairments 3-80 degrees R knee AROM Strength Comments Strength Comments unable to perform SLR on the R ; no formal MMT due to recent surgery but knee extension at least 3/5 on the R, able to activate quads for QS Sensation Assessment Sensation Gross Sensation WNL M6 PT-IP Treatment Start: 06/05/18 10:23 Freq: NEEDED Status: Active Protocol: Document 06/06/18 14:00 CLB (Rec: 06/06/18 15:50 CLB [id number]) Physical Therapy Treatment Exercises Exercises Ankle Pumps Heel Slides Education Education Provided Safety M7 PT-IP Assessment and Plan Start: 06/05/18 10:23 Freq: NEEDED Status: Active Protocol: Document 06/06/18 14:00 CLB (Rec: 06/06/18 15:50 CLB [id number]) PT Summary Assessment and Plan Summary Assessment Summary Pt refused further ambulation after using toilet. Pt required assist with walker use and cues for hand placement for safety, pt needed assist deirdre/doffing brief. Pt unable to participate in gait/ther ex due to pain. Pt may require SNF rehab to increase safety and strengthening. Goals Bed Mobility Goal Standby Assistance Transfer Goal Standby Assistance Gait Goal Standby Assistance Gait Distance 150 Other Goals up/down 3 steps with R rail ascending and CGA Days to Meet Goals 3 Frequency of Treatment Frequency Of Treatment Twice a Day Treatment Plan Other Recommendations and Next Treatment prog. gait, bed mobility; Focus stair training prior to d/c. Recommendations To Nursing Amount of Assist Needed 1 Person Assist Discharge Recommendations PT Discharge Recommendations Home with Assistance SNF Rehab Outpatient PT Other Discharge Recommendations Home with assist and OP PT vs SNF rehab
--- NOTE | 2018-06-06 15:51 | CM.DPC ---
DCP: continued: Met with pt as planned after discussing case in Team Rounds. Introduced self and role. Pt today was limited in her ability to do PT as she had sudden abrupt chest pain this morning. Hospitalist Dr. Perkins did consult and then later had pain in knee that limited her PT session. Pt does confirm that her d/c plan is to go home and have OUTPT PT in [place]. She clarifies that her PCP: Dr. Karlo Garcia She says her daughter Yojana, who lives in [facility], plans to help her at d/c and will stay with her if need be. She says she lives with her but he's really not going to be of much help. Assured her that the DCP team would be working with her and the other care team members to assist with d/c issues and options. Pt wishes to have it clear that she does plan for home at d/c but it is unclear at this time when she might be stable for that setting.
[2018-06-06 17:21] LABS: BUN Creatinine Ratio 15.7 (6-22); Blood Urea Nitrogen 11 mg/dL (7-17); Calcium 9.4 mg/dL (8.4-10.2); Carbon Dioxide 24 mmol/L (22-32); Chloride 98 mmol/L (98-107); Estimated Glomerular Filt Rate > 60.0 mL/min (>60); Glucose 126 mg/dL (80-110); HEMOLYSIS < 15 (0-50); Magnesium 1.7 mg/dL (1.6-2.3); Potassium 4.4 mmol/L (3.4-5.1); Sodium 132 mmol/L (137-145)
--- NOTE | 2018-06-06 17:21 | PC.NURSE ---
Addendum entered by Cici Baca R.N. 06/06/18 21:18: Relatively uneventful evening. Med at 1950 for discomfort w/good relief. Pt requested zantac at HS. TRACEY dsg CDI. HL remains intact. Scd on at this time. Call light w/in reach, bed alarm on for pt safety. Continue w/plan of care Original Note: Pt resting quietly in bed. Med @ 1530 w/dilaudid w/good relief. TRACEY Dsg to surgical knee CDI. SCD in place. Lungs diminished in bases, SpO2 95% RA Stable post op course. Call light w/in reach, bed alrm on for pt safety.
[2018-06-06 17:22] LABS: Add Manual Diff / Slide Review NO; Basophils Absolute Auto 100 /uL (0-100); Basophils Percent Auto 0.6 % (0-2); Eosinophils Absolute Auto 100 /uL (0-450); Hematocrit 36.4 % (36-46); Hemoglobin 11.8 g/dL (12.0-16.0); Lymphocytes Absolute Auto 2800 /uL (1100-4500); Lymphocytes Percent Auto 26.4 % (25-40); Mean Corpuscular HGB Conc 32.5 % (30-36); Mean Corpuscular Hemoglobin 28.9 PG (26-34); Mean Corpuscular Volume 88.9 fL (80-100); Monocytes Absolute Auto 800 /uL (0-900); Monocytes Percent Auto 7.6 % (3-14); Neutrophils Absolute Auto 6800 /uL (1500-7000); Neutrophils Percent Auto 64.4 % (50-75); Platelet Count 206 X10^3/uL (150-400); Red Blood Cell Count 4.09 X10^6/uL (4.0-5.2); Red Cell Distribution Width 13.9 % (11.6-14.8); White Blood Cell Count 10.5 X10^3/uL (4.5-11.0)
[2018-06-07] MEDS: HYDROMORPHONE 2 MG TABLET PO ×2 (00:58→03:55)
[2018-06-07 03:00] VITALS: BP 143/71; PULSE 84; RESP 17; TEMP 36.7; O2SAT 94
[2018-06-07] MEDS: PANTOPRAZOLE 40 MG TABLET PO (06:30)
[2018-06-07] MEDS: CEFAZOLIN 2 GM/100 ML FROZ.PIGGY IV ×3 (06:33→21:50)
[2018-06-07] MEDS: SODIUM CHLORIDE 0.9% FLUSH 10 ML IV ×3 (06:34→20:27)
[2018-06-07 08:00] VITALS: BP 141/76; PULSE 84; RESP 18; TEMP 36.6; O2SAT 95
[2018-06-07] MEDS: ASPIRIN EC 81 MG TABLET PO (09:08)
[2018-06-07] MEDS: HYDROCODONE/ACET 5/325 TABLET 2 TAB PO ×3 (09:08→20:42)
[2018-06-07] MEDS: FENOFIBRATE 160 MG TABLET PO (09:08)
[2018-06-07] MEDS: ATORVASTATIN 20 MG TABLET PO (09:09)
[2018-06-07] MEDS: METFORMIN HCL 500 MG TABLET 250 MG PO ×2 (09:09→20:27)
[2018-06-07] MEDS: LISINOPRIL 10 MG TABLET 30 MG PO (09:09)
[2018-06-07] MEDS: ONDANSETRON 4 MG/2 ML INJ IV (10:09)
--- NOTE | 2018-06-07 10:47 | CM.DPC ---
Addendum entered by Elaina Negro R.N. 06/07/18 15:47: Spoke to at [facility], she has not yet heard back from her insurance, but will leave a message on phone later if she hears back. Updated nurse Maureen, that patient will not be discharging today. hafsa Aguirre PAC will be updated so orders can be removed. stated that there should be greater than 50 percent chance that she will be approved for discharge tomorrow. She will keep us posted. Original Note: Addendum entered by Elaina Negro R.N. 06/07/18 14:36: Updated Carla Montes regarding patient's need of retirement. Have not yet received authorization from her insurance to enable her to go to [facility] yet, but will follow up again with in admissions. Original Note: Addendum entered by Elaina Negro R.N. 06/07/18 12:34: Spoke to Kiana at [facility], they are not contracted with patient's insurance, [employer], but [facility] is. Spoke to at [facility], and she is working on getting authorization. She asked for nurses notes, med list, and History and Physical, which this counter caser just sent. Asked if they could take her today. said she would call back and let us know, pending insurance authorization. Original Note: Addendum entered by Elaina Negro R.N. 06/07/18 11:20: Carla Montes will be coming back to see patient today. She is continuing to have difficulty with ambulation. Met with and patient in room. They stated that [facility] is close to where they live, and may be a good option. Called in admissions at [facility]. Stated that they do have female beds, and will review clinicals. Stated, she thinks that they take her [employer]. Stated, if it all goes through, could potentially take patient tomorrow. Will await response, and will also follow up with Carla. Original Note: Addendum entered by Elaina Negro R.N. 06/07/18 11:05: Is noted that patient has discharge orders. Will be working with physical therapy today, for this is recommendation from provider before she goes home. Original Note: DCP Cont: Discussed patient with nurse, Maureen. She stated that patient is in need of excessive assistance. Spoke with physical therapist Maureen, as well, and stated that she skilled may be the best option for her, due to her challenges with her mobility. Spoke to patient, and gave her a Medicare Choice list. She lives in [facility] with her , but she mentioned [place]. Encouraged her to choose a second facility as well, due to [facility] becoming potentially full. Went ahead and faxed referral to [facility] for now, including face sheet, and therapy notes. Will collaborate with patient again to see if there is another facility that she may also want to go to. She understands that this short term so that she will be able to get rehab. P: DCP to continue to follow closely. Skilled may be best option for patient.] Elaina Negro, RN/Audio/Video Technician
--- NOTE | 2018-06-07 10:50 | PM.DS.1 ---
History of Present Illness Date Patient Seen: 06/07/18 Time Patient Seen: 10:50 Chief complaint: Right Total Knee Arthroplasty Revision [id number] Narrative: Patient's pain is mild at rest more severe with activity. Patient has ambulated in the room. Patient's notes this morning she got nauseous getting up to use the restroom. She was given Zofran which seems to be helping. No fever chills. Patient's will be home to assist her. Patient's daughter will also be around to assist as needed. Discharge Providers Date of admission: 06/04/18 08:47 Discharge Date: 06/07/18 Primary care physician: Aby Sol MD Consults: 06/04/18 17:27 Consult to Discharge Planning Routine Comment: Consult to Physical Therapy Evaluate & Treat Comment: Physician Instructions: postop TKA protocol Consult to Respiratory Therapy Evaluate & Treat Comment: Physician Instructions: Evaluate and treat 06/06/18 07:00 Consult to Hospitalist Service Routine Comment: re: chest pain Consulting Provider: Jade Perkins Reason for consultation: chest pain Has provider been notified: Yes Discharge provider: Luis E Curtis PA-C Summary Discharge Diagnosis: Status post revision right total knee arthroplasty Hospital Course: The patient presents today for revision of right total knee arthroplasty for aseptic loosening. The nature of the procedure including the risks and benefits, alternatives, postoperative course and expected outcome were discussed and all questions answered. Consent was obtained. Operative site confirmed and marked. Surgeon: Gerry Wills Production Packager: Luis E Curtis Anesthesia Type: General, Spinal and Local Operative Notes Findings: There was gross loosening of the tibia which had fallen into flexion. The tibial component has subsided into the bone especially posteriorly. No obvious loosening of the femoral component or patellofemoral component. Both femoral and tibial components were revised as noted below. No evidence of infection. Good bone quality. Closure Type: primary Specimen(s): none sent Prosthetic devices, grafts, tissues, transplants, or devices: Baca and Nephew lesion revision system. For femur and 3 tibia. 5 mm distal medial lateral augments on the femoral component with a 16 x 160 stem and 4 mm offset. 10 mm full augment on the tibial component with a 15 x 120 stem. Applied: implant(s) Estimated Blood Loss (mL): 75 Blood products transfused: none Tourniquet time (min): 41 Patient admitted to the hospital for the above-mentioned procedure. Patient taken to the operating room underwent revision right total knee arthroplasty. Patient back in her room recovering well and is in stable condition. Patient did have some left-sided chest pain yesterday and hospitalist consulted. Patient is placed on Protonix for likely GI source of her chest pain. Patient has had similar symptoms prior. Patient has remained stable without further chest pain. Patient states she would like to go home but is worried about the lower extremity weakness and her being able to assist her. Patient's daughter will be available as needed. Status at Discharge Cognitive/behavioral status at discharge: at baseline, oriented Functional status at discharge: uses cane/walker Overall status at discharge: patient is progressing back to baseline Time Spent with Patient Less than 30 minutes Exam Vital Signs (past 8 hours): - 06/07/18 03:00 06/07/18 08:00 Temperature 98.1 F 97.8 F Pulse Rate 84 84 Respiratory Rate 17 18 Blood Pressure 143/71 H 141/76 H Pulse Oximetry 94 95 Fraction of Inspired Oxygen 21 Oxygen Delivery Method Room Air Oxygen Flow Rate 0 Narrative Exam Narrative: Pleasant 82-year-old female sitting in bedside chair in no apparent distress. Yuriy dressing is on and functioning. Dressing is clean, dry and intact. Neurovascular status is intact to the distal right lower extremity. Right leg is warm and dry. Objective Labs Result Diagrams: 06/06/18 12:45 06/06/18 12:45 Labs: Laboratory Results - last 24 hr 06/06/18 06/06/18 06/06/18 07:20 12:45 12:45 WBC RBC Hgb Hct MCV MCH MCHC RDW Plt Count Neut % (Auto) Lymph % (Auto) [place] % (Auto) Eos % (Auto) Baso % (Auto) Neut # (Auto) Lymph # (Auto) [place] # (Auto) Eos # (Auto) Baso # (Auto) Sodium 132 L Potassium 4.4 Chloride 98 Carbon Dioxide 24 BUN 11 Creatinine 0.70 Estimated GFR > 60.0 BUN/Creatinine Ratio 15.7 Glucose 126 H Calcium 9.4 Magnesium 1.7 Troponin I < 0.012 < 0.012 06/06/18 12:45 WBC 10.5 RBC 4.09 Hgb 11.8 L Hct 36.4 MCV 88.9 MCH 28.9 MCHC 32.5 RDW 13.9 Plt Count 206 Neut % (Auto) 64.4 Lymph % (Auto) 26.4 [place] % (Auto) 7.6 Eos % (Auto) 1.0 L Baso % (Auto) 0.6 Neut # (Auto) 6800 Lymph # (Auto) 2800 [place] # (Auto) 800 Eos # (Auto) 100 Baso # (Auto) 100 Sodium Potassium Chloride Carbon Dioxide BUN Creatinine Estimated GFR BUN/Creatinine Ratio Glucose Calcium Magnesium Troponin I Right knee tissue: Gram Stain Final 06/04/18183 No Organism Seen No organisms seen White blood cells Few WBCs Epithelial cells Occasional (0-1) MODERATE TISSUE CELLS Aerobic Culture for wounds Final 06/07/18-743 No growth. Anaerobic Culture Preliminary 06/06/18 No growth. Right knee swab: Gram Stain Final 06/04/18155 No cells/ Organisms seen No cells or organisms seen White blood cells No WBC seen Aerobic Culture for wounds Final 06/07/18-744 No growth. Anaerobic Culture Preliminary 06/06/18 No growth. Discharge Plan Discharge Plan Patient Disposition: Home Discharge comment: DC home today after PT Discharge Med Rec/Prescriptions Prescriptions: New hydrocodone-acetaminophen 5-325 mg Tablet 2 tab PO Q4HR PRN (Reason: Pain, Severe (7-10)) Qty: 60 RF: 0 aspirin 81 mg Tablet,Delayed Release (Dr/Ec) 81 mg PO DAILY Qty: 30 RF: 0 ondansetron 4 mg Tablet,Disintegrating 4 mg PO Q4HR PRN (Reason: Nausea) Qty: 30 RF: 0 Continued metformin 500 mg Tablet 250 mg PO BID Qty: 0 RF: 0 multivitamin Capsule 1 cap PO QAM Qty: 0 RF: 0 ranitidine HCl 75 mg Tablet 75 mg PO DAILY PRN (Reason: Acid Reflux) Qty: 0 RF: 0 atorvastatin 20 mg Tablet 20 mg PO DAILY RF: 0 lisinopril 30 mg Tablet 30 mg PO DAILY RF: 0 fenofibrate 160 mg Tablet 160 mg PO DAILY RF: 0 Discontinued hydrocodone-acetaminophen 7.5-325 mg Tablet 1 tab PO Q4-6H PRN (Reason: pain) Qty: 0 RF: 0 Follow up/Referrals: Aby Sol MD [Primary Care Provider] - Provider Discharge Instructions Diet: Carb-consistent/Diabetic Activity: WBAT Cold/Heat Therapy: ice as needed Skin/Wound/Dressing Care Report to your healthcare provider any signs of infection, such as:: chills, fever, increased pain, unusual drainage and unusual redness Dressing: keep clean and dry Discharge Data Primary Care Provider: Aby Sol Attending Provider: Gerry Wills Admit Date/Time: 06/04/18 08:47 Quality VTE Deep Vein Thrombosis/Pulmonary Embolism Present on Admission: No
--- NOTE | 2018-06-07 10:56 | PC.NURSE ---
Day Shift Pt is alert and oriented able to make needs known. Rates pain to right knee 6/10 medicated per emar. Pt has stefan drain working well has scant amount of shadow drainage on dressing. Green light is flashing. +cms, +PP, denies any numbness or tingling. Denies any chest pain, SOB and h/a. Pt got up to ambulate to bathroom and c/o feeling nauseated only made it about half way and needed to sit and use the BSC, needs reminders to not place right leg so fair in from of her. Medicated for nausea reports relief. call light within reach and bed alarm on. family at bedside.
--- NOTE | 2018-06-07 10:59 | P.DS_ITS ---
History of Present Illness Date Patient Seen: 06/07/18 Time Patient Seen: 10:50 Chief complaint: Right Total Knee Arthroplasty Revision [id number] Narrative: Patient's pain is mild at rest more severe with activity. Patient has ambulated in the room. Patient's notes this morning she got nauseous getting up to use the restroom. She was given Zofran which seems to be helping. No fever chills. Patient's will be home to assist her. Patient's daughter will also be around to assist as needed. Discharge Providers Date of admission: 06/04/18 08:47 Discharge Date: 06/07/18 Primary care physician: Aby Sol MD Consults: 06/04/18 17:27 Consult to Discharge Planning Routine Comment: Consult to Physical Therapy Evaluate & Treat Comment: Physician Instructions: postop TKA protocol Consult to Respiratory Therapy Evaluate & Treat Comment: Physician Instructions: Evaluate and treat 06/06/18 07:00 Consult to Hospitalist Service Routine Comment: re: chest pain Consulting Provider: Jade Perkins Reason for consultation: chest pain Has provider been notified: Yes Discharge provider: Luis E Curtis PA-C Summary Discharge Diagnosis: Status post revision right total knee arthroplasty Hospital Course: The patient presents today for revision of right total knee arthroplasty for aseptic loosening. The nature of the procedure including the risks and benefits, alternatives, postoperative course and expected outcome were discussed and all questions answered. Consent was obtained. Operative site confirmed and marked. Surgeon: Gerry Wills Mechanical Engineering Technician: Luis E Curtis Anesthesia Type: General, Spinal and Local Operative Notes Findings: There was gross loosening of the tibia which had fallen into flexion. The tibial component has subsided into the bone especially posteriorly. No obvious loosening of the femoral component or patellofemoral component. Both femoral and tibial components were revised as noted below. No evidence of infection. Good bone quality. Closure Type: primary Specimen(s): none sent Prosthetic devices, grafts, tissues, transplants, or devices: Baca and Nephew lesion revision system. For femur and 3 tibia. 5 mm distal medial lateral augments on the femoral component with a 16 x 160 stem and 4 mm offset. 10 mm full augment on the tibial component with a 15 x 120 stem. Applied: implant(s) Estimated Blood Loss (mL): 75 Blood products transfused: none Tourniquet time (min): 41 Patient admitted to the hospital for the above-mentioned procedure. Patient taken to the operating room underwent revision right total knee arthroplasty. Patient back in her room recovering well and is in stable condition. Patient did have some left-sided chest pain yesterday and hospitalist consulted. Patient is placed on Protonix for likely GI source of her chest pain. Patient has had similar symptoms prior. Patient has remained stable without further chest pain. Patient states she would like to go home but is worried about the lower extremi ty weakness and her being able to assist her. Patient's daughter will be available as needed. Status at Discharge Cognitive/behavioral status at discharge: at baseline, oriented Functional status at discharge: uses cane/walker Overall status at discharge: patient is progressing back to baseline Time Spent with Patient Less than 30 minutes Exam Vital Signs (past 8 hours): - 06/07/18 03:00 06/07/18 08:00 Temperature 98.1 F 97.8 F Pulse Rate 84 84 Respiratory Rate 17 18 Blood Pressure 143/71 H 141/76 H Pulse Oximetry 94 95 Fraction of Inspired Oxygen 21 Oxygen Delivery Method Room Air Oxygen Flow Rate 0 Narrative Exam Narrative: Pleasant 82-year-old female sitting in bedside chair in no apparent distress. Yuriy dressing is on and functioning. Dressing is clean, dry and intact. Neurovascular status is intact to the distal right lower extremity. Right leg is warm and dry. Objective Labs Result Diagrams: 06/06/18 12:45 06/06/18 12:45 Labs: Laboratory Results - last 24 hr 06/06/18 06/06/18 06/06/18 07:20 12:45 12:45 WBC RBC Hgb Hct MCV MCH MCHC RDW Plt Count Neut % (Auto) Lymph % (Auto) [place] % (Auto) Eos % (Auto) Baso % (Auto) Neut # (Auto) Lymph # (Auto) [place] # (Auto) Eos # (Auto) Baso # (Auto) Sodium 132 L Potassium 4.4 Chloride 98 Carbon Dioxide 24 BUN 11 Creatinine 0.70 Estimated GFR > 60.0 BUN/Creatinine Ratio 15.7 Glucose 126 H Calcium 9.4 Magnesium 1.7 Troponin I < 0.012 < 0.012 06/06/18 12:45 WBC 10.5 RBC 4.09 Hgb 11.8 L Hct 36.4 MCV 88.9 MCH 28.9 MCHC 32.5 RDW 13.9 Plt Count 206 Neut % (Auto) 64.4 Lymph % (Auto) 26.4 [place] % (Auto) 7.6 Eos % (Auto) 1.0 L Baso % (Auto) 0.6 Neut # (Auto) 6800 Lymph # (Auto) 2800 [place] # (Auto) 800 Eos # (Auto) 100 Baso # (Auto) 100 Sodium Potassium Chloride Carbon Dioxide BUN Creatinine Estimated GFR BUN/Creatinine Ratio Glucose Calcium Magnesium Troponin I Right knee tissue: Gram Stain Final 06/04/18 No Organism Seen No organisms seen White blood cells Few WBCs Epithelial cells Occasional (0-1) MODERATE TISSUE CELLS Aerobic Culture for wounds Final 06/07/18- 743 No growth. Anaerobic Culture Preliminary 06/06/181039 No growth. Right knee swab: Gram Stain Final 06/04/18155 No cells/ Organisms seen No cells or organisms seen White blood cells No WBC seen Aerobic Culture for wounds Final 06/07/18744 No growth. Anaerobic Culture Preliminary 06/06/181040 No growth. Discharge Plan Discharge Plan Patient Disposition: Home Discharge comment: DC home today after PT Discharge Med Rec/Prescriptions Prescriptions: New hydrocodone-acetaminophen 5-325 mg Tablet 2 tab PO Q4HR PRN (Reason: Pain, Severe (7-10)) Qty: 60 RF: 0 aspirin 81 mg Tablet,Delayed Release (Dr/Ec) 81 mg PO DAILY Qty: 30 RF: 0 ondansetron 4 mg Tablet,Disintegrating 4 mg PO Q4HR PRN (Reason: Nausea) Qty: 30 RF: 0 Continued metformin 500 mg Tablet 250 mg PO BID Qty: 0 RF: 0 multivitamin Capsule 1 cap PO QAM Qty: 0 RF: 0 ranitidine HCl 75 mg Tablet 75 mg PO DAILY PRN (Reason: Acid Reflux) Qty: 0 RF: 0 atorvastatin 20 mg Tablet 20 mg PO DAILY RF: 0 lisinopril 30 mg Tablet 30 mg PO DAILY RF: 0 fenofibrate 160 mg Tablet 160 mg PO DAILY RF: 0 Discontinued hydrocodone-acetaminophen 7.5-325 mg Tablet 1 tab PO Q4-6H PRN (Reason: pain) Qty: 0 RF: 0 Follow up/Referrals: Aby Sol MD [Primary Care Provider] - Provider Discharge Instructions Diet: Carb-consistent/Diabetic Activity: WBAT Cold/Heat Therapy: ice as needed Skin/Wound/Dressing Care Report to your healthcare provider any signs of infection, such as:: chills, fever, increased pain, unusual drainage and unusual redness Dressing: keep clean and dry Discharge Data Primary Care Provider: Aby Sol Attending Provider: Gerry Wills Admit Date/Time: 06/04/18 08:47 Quality VTE Deep Vein Thrombosis/Pulmonary Embolism Present on Admission: No
[2018-06-07 12:00] VITALS: BP 129/65; PULSE 90; RESP 18; TEMP 36.6; O2SAT 96
--- NOTE | 2018-06-07 13:35 | PT.IPTN ---
Current Diagnoses Mechanical loosening of internal right knee prosthetic joint, subsequent encounter (06/04/18) Presence of right artificial knee joint (06/04/18) Presence of unspecified artificial knee joint (06/04/18) Surgery Performed Operation Date: 06/04/18 11:15 Actual Procedures p Total Knee Arthroplasty Revision(Right) - Gerry Wills MD Physical Therapy Treatment Note M2 PT-IP Current Condition Start: 06/05/18 10:23 Freq: NEEDED Status: Active Protocol: Document 06/05/18 09:46 RCC (Rec: 06/05/18 10:35 RCC [id number]) Physical Therapy Current Condition Current Condition Evaluation Date 06/05/18 Treatment Diagnosis R TKA revision 06/05/18, impaired activity tolerance, gait, ROM Onset Date 06/04/18 Weight Bearing Status Weight Bearing Status Weight Bear as Tolerated M3 PT-IP Subjective Start: 06/05/18 10:23 Freq: NEEDED Status: Active Protocol: Document 06/07/18 11:40 RS (Rec: 06/07/18 13:34 RS [email or web address]) Subjective Physical Therapy Visit Type Type Treatment Note Visit Start Time 11:00 Visit Stop Time 11:40 Total Visit Minutes 40 Physical Therapy Visit Comments Patient Comments Pt agreeable to therapy, denies feeling nauseous right now, doesn't feel like she'd be safe at home. Therapy Pain Assessment Pain When Pain Assessed During Mobility Pain Present Pain Present Pain Reported M4 PT-IP Mobility and Gait Start: 06/05/18 10:23 Freq: NEEDED Status: Active Protocol: Document 06/07/18 11:40 RS (Rec: 06/07/18 13:34 RS [id number]) PT-Transfer Assessment Sit to and From Stand Sit to and from Stand Contact Guard Assistance 1 Person Assistance Use of Upper Extremities Equipment Transfer Assistive Device Gait Belt Front Wheeled Walker Transfers Transfer Destination Chair Transfer Technique walked Transfer Ability Level of Assist Contact Guard Assistance Comments Mobility Comments Pt already up in chair so bed mobility was not performed. Pt able to stand up and transfer with only CGA, however, pt describes 8/10 pain in R knee. Pt still requiring cues for sequencing, foot positition, FWW position, and posture, all of these needed intermittently throughout entire session. Gait Assessment Gait Gait Assistance Required: Contact Guard Assist Distance (Feet) 15 Assistive Devices Assistive Device Gait Belt Front Wheeled Walker Gait Deviations General Gait Pattern Antalgic Decreased Stride Length Decreased Feet Clearance Flexed Trunk Step-to Gait Wide Based Gait Comments Gait Comments Pt ambulated from chair to room door and back to chair, pt declined to walk further d/ t pain/fatigue, doubtful pt would have been able to walk further even if not demonstrating self-limiting behaviors. Gait quality deteriorated the longer the patient was up. As stated above, still needing intermittent cues for all aspects of ideal gait cycle. Stair Climbing Assessment Comments Stair Climbing Comments not tested M5 PT-IP Objective Assessments Start: 06/05/18 10:23 Freq: NEEDED Status: Active Protocol: Document 06/05/18 09:46 RCC (Rec: 06/05/18 10:35 RCC [id number]) Orientation Orientation/Cognition Level of Alertness Alert Gross Range of Motion Lower Extremity ROM Assessment Right Impaired Impairments 3-80 degrees R knee AROM Strength Comments Strength Comments unable to perform SLR on the R ; no formal MMT due to recent surgery but knee extension at least 3/5 on the R, able to activate quads for QS Sensation Assessment Sensation Gross Sensation WNL M6 PT-IP Treatment Start: 06/05/18 10:23 Freq: NEEDED Status: Active Protocol: Document 06/06/18 14:00 CLB (Rec: 06/06/18 15:50 CLB [id number]) Physical Therapy Treatment Exercises Exercises Ankle Pumps Heel Slides Education Education Provided Safety M7 PT-IP Assessment and Plan Start: 06/05/18 10:23 Freq: NEEDED Status: Active Protocol: Document 06/07/18 11:40 RS (Rec: 06/07/18 13:34 RS [id number]) PT Summary Assessment and Plan Summary Progress Towards Goals Progressing Toward Goals Slow Progress due to Pain Slow Progress due to Activity Tolerance Assessment Summary Pt able to walk slightly further today (POD#3 R TKA), but is still significantly below minimum for safe household mobility. Pt limited by pain as well as other self -limiting behaviors. Pt is far below reported functional baseline and continues to demonstrate potential for functional improvement. Pt will benefit from transition to SNF rehab once medically ready. Goals Bed Mobility Goal Standby Assistance Transfer Goal Standby Assistance Gait Goal Standby Assistance Gait Distance 150 Other Goals up/down 3 steps with R rail ascending and CGA Days to Meet Goals 3 Frequency of Treatment Frequency Of Treatment Twice a Day Treatment Plan Physical Therapy Treatment Plan Bed Mobility Training Transfer Training Gait Training Therapeutic Exercise Balance Retraining Post Op Education Discharge Planning Hot or Cold Pack Neuromuscular Re-ed Other Recommendations and Next Treatment see if pt can walk at least Focus 50ft, need to do stairs Recommendations To Nursing Amount of Assist Needed 1 Person Assist Discharge Recommendations PT Discharge Recommendations Home with Assistance SNF Rehab Outpatient PT
[2018-06-07] MEDS: ONDANSETRON 4 MG ODT PO (14:13)
--- NOTE | 2018-06-07 15:41 | PT.IPTN ---
Current Diagnoses Mechanical loosening of internal right knee prosthetic joint, subsequent encounter (06/04/18) Presence of right artificial knee joint (06/04/18) Presence of unspecified artificial knee joint (06/04/18) Surgery Performed Operation Date: 06/04/18 11:15 Actual Procedures p Total Knee Arthroplasty Revision(Right) - Gerry Wills MD Physical Therapy Treatment Note Notes Pt reports recently getting back to bed and too tired to participate at this time. Pt informed that PT might not be able to make it back today, pt expressed understanding and still chose to stay in bed.
--- NOTE | 2018-06-07 16:35 | P.PN_ITS ---
Subjective Date Patient Seen: 06/07/18 Interval history: Patient seen and examined. She denies any further chest pain today. She complains of nausea. She has been unable to ambulate secondary to her nausea. Exam Vital Signs (past 8 hours): - 06/07/18 12:00 Temperature 97.8 F Pulse Rate 90 Respiratory Rate 18 Blood Pressure 129/65 Pulse Oximetry 96 Fraction of Inspired Oxygen 21 Oxygen Delivery Method Room Air Oxygen Flow Rate 0 Narrative Exam Narrative: Ill-appearing female lungs: Clear to auscultation cardiac exam: Regular rate and rhythm normal S1 and S2 abdomen: Soft nontender nondistended extremities: Right leg with edema dressing dry with minimal accident Objective Labs Result Diagrams: 06/06/18 12:45 06/06/18 12:45 Labs: Laboratory Results - last 24 hr 06/06/18 06/06/18 12:45 12:45 WBC 10.5 RBC 4.09 Hgb 11.8 L Hct 36.4 MCV 88.9 MCH 28.9 MCHC 32.5 RDW 13.9 Plt Count 206 Neut % (Auto) 64.4 Lymph % (Auto) 26.4 [place] % (Auto) 7.6 Eos % (Auto) 1.0 L Baso % (Auto) 0.6 Neut # (Auto) 6800 Lymph # (Auto) 2800 [place] # (Auto) 800 Eos # (Auto) 100 Baso # (Auto) 100 Sodium 132 L Potassium 4.4 Chloride 98 Carbon Dioxide 24 BUN 11 Creatinine 0.70 Estimated GFR > 60.0 BUN/Creatinine Ratio 15.7 Glucose 126 H Calcium 9.4 Magnesium 1.7 Assessment & Plan (1) Atypical chest pain: Problem details: no evidence of coronary disease will continue to monitor closely Current visit: Yes Status: Acute (2) Nausea: Problem details: suspect secondary to narcotics. Patient will receive anti nausea medications to assist. Current visit: Yes Status: Acute Assessment & Plan narrative: PT OT consultation. Anticipate sniff at discharge. No further recommendations at this time thank you very much for thi Quality VTE Deep Vein Thrombosis/Pulmonary Embolism Present on Admission: No
[2018-06-07 16:42] VITALS: BP 122/64; PULSE 98; RESP 20; TEMP 36.9; O2SAT 92
--- NOTE | 2018-06-07 19:54 | PC.NURSE ---
Pt alert/oriented. Reports pain minimal 2-3/10. Has denied need for pain meds so far this shift. Yuriy dressing dry/intact, light flashing green. Small pinpoint areas of drainage present. CMS+. Up to BSC to void. Room air 94%. Using call light appropriately, bed alarm on. Anticipating d/c to SNF tomorrow.
[2018-06-07] MEDS: DOCUSATE 100 MG CAPSULE PO (20:42)
[2018-06-07 22:39] VITALS: BP 137/63; PULSE 87; RESP 19; TEMP 36.6; O2SAT 95
[2018-06-08] VITALS (8 sets, daily range): BP systolic 114–134; BP diastolic 54–88; PULSE 77–95; RESP 16–18; TEMP 36.3–36.8; O2SAT 88–97
--- NOTE | 2018-06-08 00:52 | PC.NURSE ---
0030 Checked pt. she's sound asleep, will monitor & assess when she wakes up.
[2018-06-08] MEDS: HYDROCODONE/ACET 5/325 TABLET 2 TAB PO ×5 (02:10→22:53)
[2018-06-08] MEDS: SODIUM CHLORIDE 0.9% FLUSH 10 ML IV ×3 (05:53→20:31)
[2018-06-08] MEDS: CEFAZOLIN 2 GM/100 ML FROZ.PIGGY IV ×3 (05:53→22:47)
[2018-06-08] MEDS: PANTOPRAZOLE 40 MG TABLET PO (05:54)
--- NOTE | 2018-06-08 07:28 | PM.DS.1 ---
History of Present Illness Date Patient Seen: 06/08/18 Chief complaint: Right Total Knee Arthroplasty Revision [id number] Narrative: , Patient is seen bedside status post right total knee revision on 06/04/2018. Patient is postop day 4. Patient is doing well, the nausea and atypical chest pain that she had yesterday has resolved. She is pending insurance approval for discharge to a shelter facility today. She is currently in moderate pain and has not had any medication since 2am. Denies chest pain, shortness of breath, cough, calf pain or nausea/vomiting. Discharge Providers Date of admission: 06/04/18 08:47 Discharge Date: 06/08/18 Primary care physician: Aby Sol MD Consults: 06/04/18 17:27 Consult to Discharge Planning Routine Comment: Consult to Physical Therapy Evaluate & Treat Comment: Physician Instructions: postop TKA protocol Consult to Respiratory Therapy Evaluate & Treat Comment: Physician Instructions: Evaluate and treat 06/06/18 07:00 Consult to Hospitalist Service Routine Comment: re: chest pain Consulting Provider: Jade Perkins Reason for consultation: chest pain Has provider been notified: Yes Discharge provider: Lachelle Luo PA-C Summary Discharge Diagnosis: 1. Aseptic loosening of right knee prosthesis Hospital Course: Patient was admitted to the hospital status post right total knee revision by Dr. Wills on 06/04/2018. Patient tolerated the procedure well with no major complications. They were transferred to the acute care floor where they were placed on the standard joint replacement pathway and protocol. They were seen by physical therapy who recommended that they be discharged to a shelter facility. They were stable and ready for discharge on 06/08/18 to [facility]. Status at Discharge Cognitive/behavioral status at discharge: at baseline, oriented Functional status at discharge: uses cane/walker Overall status at discharge: patient is progressing back to baseline Time Spent with Patient Less than 30 minutes Exam Vital Signs (past 8 hours): - 06/08/18 02:00 06/08/18 05:50 Temperature 97.4 F L 98.1 F Pulse Rate 87 85 Respiratory Rate 16 16 Blood Pressure 134/68 133/81 Pulse Oximetry 94 95 Fraction of Inspired Oxygen 21 Oxygen Delivery Method Room Air Oxygen Flow Rate 0 Narrative Exam Narrative: Well-developed well-nourished no acute distress alert oriented. Dressing on right knee is clean dry and intact with mild drainage on the stefan dressing that appears old. Calf is soft and compressible full range of motion of the foot and ankle. Neurovascularly intact in the right lower extremity. Objective Labs Result Diagrams: 06/06/18 12:45 06/06/18 12:45 Discharge Plan Discharge Plan Patient Disposition: SNF Transfer to: [facility], [facility] Under care of provider: Facility MD Transportation: Facility vehicle Consult as needed: Dental, Hearing, Mental health, Podiatry and Vision I certify the postop hospital shelter care is medically necessary on a continuing basis for any conditions for which he/ she received care during this hospitalization.: Yes The receiving facility has agreed to accept transfer and provide medical treatment.: Yes Discharge Med Rec/Prescriptions Prescriptions: New hydrocodone-acetaminophen 5-325 mg Tablet 2 tab PO Q4HR PRN (Reason: Pain, Severe (7-10)) Qty: 60 RF: 0 aspirin 81 mg Tablet,Delayed Release (Dr/Ec) 81 mg PO DAILY Qty: 30 RF: 0 ondansetron 4 mg Tablet,Disintegrating 4 mg PO Q4HR PRN (Reason: Nausea) Qty: 30 RF: 0 Continued metformin 500 mg Tablet 250 mg PO BID Qty: 0 RF: 0 multivitamin Capsule 1 cap PO QAM Qty: 0 RF: 0 ranitidine HCl 75 mg Tablet 75 mg PO DAILY PRN (Reason: Acid Reflux) Qty: 0 RF: 0 atorvastatin 20 mg Tablet 20 mg PO DAILY RF: 0 lisinopril 30 mg Tablet 30 mg PO DAILY RF: 0 fenofibrate 160 mg Tablet 160 mg PO DAILY RF: 0 Discontinued hydrocodone-acetaminophen 7.5-325 mg Tablet 1 tab PO Q4-6H PRN (Reason: pain) Qty: 0 RF: 0 Follow up/Referrals: Gerry Wills MD [Physician] - Discharge Health Status Multidrug resistant organism: No MDRO Precautions: [place] Provider Discharge Instructions Diet: Carb-consistent/Diabetic Liquid consistency: Normal/Thin Food texture: Regular Activity: Weightbearing as tolerated, use walker until cleared by physical therapy. Elevate operative leg regularly to reduce swelling. Cold/Heat Therapy: Apply ice to affected area for 20 minutes at a time at least hourly while awake. Skin/Wound/Dressing Care Report to your healthcare provider any signs of infection, such as:: chills, fever, increased pain, unusual drainage and unusual redness Dressing: Keep dressing clean, dry, and intact. May shower with it in place but no soaking. Special Rehabilitation Services Reason for rehabilitation: Post-operative therapy Rehab type: Physical therapy and Occupational therapy Visit Report/Discharge Packet Instructions: DI for Knee Replacement Discharge Data Primary Care Provider: Aby Sol Attending Provider: Gerry Wills Admit Date/Time: 06/04/18 08:47 Quality VTE Deep Vein Thrombosis/Pulmonary Embolism Present on Admission: No
--- NOTE | 2018-06-08 07:40 | P.DS_ITS ---
History of Present Illness Date Patient Seen: 06/08/18 Chief complaint: Right Total Knee Arthroplasty Revision [id number] Narrative: , Patient is seen bedside status post right total knee revision on 06/04/2018. Patient is postop day 4. Patient is doing well, the nausea and atypical chest pain that she had yesterday has resolved. She is pending insurance approval for discharge to a senior care facility today. She is currently in moderate pain and has not had any medication since 2am. Denies chest pain, shortness of breath, cough, calf pain or nausea/vomiting. Discharge Providers Date of admission: 06/04/18 08:47 Discharge Date: 06/08/18 Primary care physician: Aby Sol MD Consults: 06/04/18 17:27 Consult to Discharge Planning Routine Comment: Consult to Physical Therapy Evaluate & Treat Comment: Physician Instructions: postop TKA protocol Consult to Respiratory Therapy Evaluate & Treat Comment: Physician Instructions: Evaluate and treat 06/06/18 07:00 Consult to Hospitalist Service Routine Comment: re: chest pain Consulting Provider: Jade Perkins Reason for consultation: chest pain Has provider been notified: Yes Discharge provider: Lachelle Luo PA-C Summary Discharge Diagnosis: 1. Aseptic loosening of right knee prosthesis Hospital Course: Patient was admitted to the hospital status post right total knee revision by Dr. Wills on 06/04/2018. Patient tolerated the procedure well with no major complications. They were transferred to the acute care floor where they were placed on the standard joint replacement pathway and protocol. They were seen by physical therapy who recommended that they be discharged to a senior care facility. They were stable and ready for discharge on 06/08/18 to [facility]. Status at Discharge Cognitive/behavioral status at discharge: at baseline, oriented Functional status at discharge: uses cane/walker Overall status at discharge: patient is progressing back to baseline Time Spent with Patient Less than 30 minutes Exam Vital Signs (past 8 hours): - 06/08/18 02:00 06/08/18 05:50 Temperature 97.4 F L 98.1 F Pulse Rate 87 85 Respiratory Rate 16 16 Blood Pressure 134/68 133/81 Pulse Oximetry 94 95 Fraction of Inspired Oxygen 21 Oxygen Delivery Method Room Air Oxygen Flow Rate 0 Narrative Exam Narrative: Well-developed well-nourished no acute distress alert oriented. Dressing on right knee is clean dry and intact with mild drainage on the stefan dressing that appears old. Calf is soft and compressible full range of motion of the foot and ankle. Neurovascularly intact in the right lower extremity. Objective Labs Result Diagrams: 06/06/18 12:45 06/06/18 12:45 Discharge Plan Discharge Plan Patient Disposition: SNF Transfer to: [facility], [facility] Under care of provider: Facility MD Transportation: Facility vehicle Consult as needed: Dental, Hearing, Mental health, Podiatry and Vision I certify the postop hospital senior care care is medically necessary on a continuing basis for any conditions for which he/ she received care during this hospitalization.: Yes The receiving facility has agreed to accept transfer and provide medical treatment.: Yes Discharge Med Rec/Prescriptions Prescriptions: New hydrocodone-acetaminophen 5-325 mg Tablet 2 tab PO Q4HR PRN (Reason: Pain, Severe (7-10)) Qty: 60 RF: 0 aspirin 81 mg Tablet,Delayed Release (Dr/Ec) 81 mg PO DAILY Qty: 30 RF: 0 ondansetron 4 mg Tablet,Disintegrating 4 mg PO Q4HR PRN (Reason: Nausea) Qty: 30 RF: 0 Continued metformin 500 mg Tablet 250 mg PO BID Qty: 0 RF: 0 multivitamin Capsule 1 cap PO QAM Qty: 0 RF: 0 ranitidine HCl 75 mg Tablet 75 mg PO DAILY PRN (Reason: Acid Reflux) Qty: 0 RF: 0 atorvastatin 20 mg Tablet 20 mg PO DAILY RF: 0 lisinopril 30 mg Tablet 30 mg PO DAILY RF: 0 fenofibrate 160 mg Tablet 160 mg PO DAILY RF: 0 Discontinued hydrocodone-acetaminophen 7.5-325 mg Tablet 1 tab PO Q4-6H PRN (Reason: pain) Qty: 0 RF: 0 Follow up/Referrals: Gerry Wills MD [Physician] - Discharge Health Status Multidrug resistant organism: No MDRO Precautions: [place] Provider Discharge Instructions Diet: Carb-consistent/Diabetic Liquid consistency: Normal/Thin Food texture: Regular Activity: Weightbearing as tolerated, use walker until cleared by physical therapy. Elevate operative leg regularly to reduce swelling. Cold/Heat Therapy: Apply ice to affected area for 20 minutes at a time at least hourly while awake. Skin/Wound/Dressing Care Report to your healthcare provider any signs of infection, such as:: chills, fever, increased pain, unusual drainage and unusual redness Dressing: Keep dressing clean, dry, and intact. May shower with it in place but no soaking. Special Rehabilitation Services Reason for rehabilitation: Post-operative therapy Rehab type: Physical therapy and Occupational therapy Visit Report/Discharge Packet Instructions: DI for Knee Replacement Discharge Data Primary Care Provider: Aby Sol Attending Provider: Gerry Wills Admit Date/Time: 06/04/18 08:47 Quality VTE Deep Vein Thrombosis/Pulmonary Embolism Present on Admission: No
[2018-06-08] MEDS: ONDANSETRON 4 MG ODT PO (08:17)
[2018-06-08] MEDS: FENOFIBRATE 160 MG TABLET PO (10:01)
[2018-06-08] MEDS: METFORMIN HCL 500 MG TABLET 250 MG PO ×2 (10:01→20:31)
[2018-06-08] MEDS: LISINOPRIL 10 MG TABLET 30 MG PO (10:02)
[2018-06-08] MEDS: DOCUSATE 100 MG CAPSULE PO ×2 (10:03→20:31)
[2018-06-08] MEDS: ATORVASTATIN 20 MG TABLET PO (10:04)
[2018-06-08] MEDS: ASPIRIN EC 81 MG TABLET PO (10:04)
--- NOTE | 2018-06-08 11:29 | CM.DPC ---
Addendum entered by Elaina Negro R.N. 06/08/18 14:57: Left another message with Ani in admissions at [facility], regarding status of authorization. Original Note: DCP Cont: Spoke to Ani, she is admissions today at [facility] in [facility]. Initially, she stated that they were awaiting referral from [employer]. Called her back again, and she stated that fax was sent to the incorrect fax number, but now, she did send it to correct fax number, she is just waiting for a reference number. Still have had no authorization yet. New orders were put in for her discharge today. Have updated daughter, as well as patient. P: DCP will continue to monitor, and will reach out again regarding authorization for [employer]. Elaina Negro RN/Manufacturing Technology Professor
--- NOTE | 2018-06-08 11:31 | PC.NURSE ---
Addendum entered by Aby Quesada R.N. 06/08/18 13:27: PAIN/GI - Elizabeth lunch, discussed pain mgt and continued with norco 5/325mg x1 tab with sugar free pudding for mobilization this afternoon. Original Note: AM NOTE - pt refusing breakfast this am, states onset nausea I can't eat, given 4mg SL zofran, also complaint GERD, after elizabeth zofran, given zantac, when later am able elizabeth breakfast, pt req pain medication and discussed dosage and givien 5/325mg tab after meal, stefan dsg removed, stapled incision intact, no drainage, replaced with aquacell, later am phys therapy in and ambul in room, req addl medication for pain, discussed with pt who still has on/off nausea and felt that the pain would be manageable now that she was seated and ice packs applied, brought in diet gingerale to sip.
--- NOTE | 2018-06-08 12:40 | PT.IPTN ---
Current Diagnoses Other chest pain (06/04/18) Nausea (06/04/18) Mechanical loosening of internal right knee prosthetic joint, subsequent encounter (06/04/18) Presence of right artificial knee joint (06/04/18) Presence of unspecified artificial knee joint (06/04/18) Surgery Performed Operation Date: 06/04/18 11:15 Actual Procedures p Total Knee Arthroplasty Revision(Right) - Gerry Wills MD Physical Therapy Treatment Note M2 PT-IP Current Condition Start: 06/05/18 10:23 Freq: NEEDED Status: Active Protocol: Document 06/05/18 09:46 RCC (Rec: 06/05/18 10:35 RCC [id number]) Physical Therapy Current Condition Current Condition Evaluation Date 06/05/18 Treatment Diagnosis R TKA revision 06/05/18, impaired activity tolerance, gait, ROM Onset Date 06/04/18 Weight Bearing Status Weight Bearing Status Weight Bear as Tolerated M3 PT-IP Subjective Start: 06/05/18 10:23 Freq: NEEDED Status: Active Protocol: Document 06/08/18 11:11 CLB (Rec: 06/08/18 12:40 CLB [id number]) Subjective Physical Therapy Visit Type Type Treatment Note Visit Start Time 11:11 Visit Stop Time 11:34 Total Visit Minutes 23 Number of ENVIRONMENTAL HEALTH AND SAFETY LEADER Visits 2 Physical Therapy Visit Comments Patient Comments Pt in BR upon arrival. Therapy Pain Assessment Pain When Pain Assessed During Mobility Pain Present Pain Present Pain Reported M4 PT-IP Mobility and Gait Start: 06/05/18 10:23 Freq: NEEDED Status: Active Protocol: Document 06/08/18 11:11 CLB (Rec: 06/08/18 12:40 CLB [id number]) PT-Transfer Assessment Sit to and From Stand Sit to and from Stand Contact Guard Assistance 1 Person Assistance Use of Upper Extremities Equipment Transfer Assistive Device Gait Belt Front Wheeled Walker Transfers Transfer Destination Chair Transfer Technique walked Transfer Ability Level of Assist Contact Guard Assistance Comments Mobility Comments Pt in BR upon arrival already up independently to stand. Pt required CGA for stand-sit in chair. Gait Assessment Gait Gait Assistance Required: Contact Guard Assist Distance (Feet) 20 Assistive Devices Assistive Device Gait Belt Front Wheeled Walker Gait Deviations General Gait Pattern Antalgic Decreased Stride Length Decreased Feet Clearance Flexed Trunk Step-to Gait Wide Based Gait Factors Limiting Gait Function Factors Limiting Gait Function Decreased Activity Tolerance Decreased Strength Limited Range of Motion Pain Poor Balance Comments Gait Comments Pt ambulated from BR to door and back to chair CGA/FWW. Pt c/o pain and nausea during ambulation. M5 PT-IP Objective Assessments Start: 06/05/18 10:23 Freq: NEEDED Status: Active Protocol: Document 06/05/18 09:46 RCC (Rec: 06/05/18 10:35 RCC [id number]) Orientation Orientation/Cognition Level of Alertness Alert Gross Range of Motion Lower Extremity ROM Assessment Right Impaired Impairments 3-80 degrees R knee AROM Strength Comments Strength Comments unable to perform SLR on the R ; no formal MMT due to recent surgery but knee extension at least 3/5 on the R, able to activate quads for QS Sensation Assessment Sensation Gross Sensation WNL M6 PT-IP Treatment Start: 06/05/18 10:23 Freq: NEEDED Status: Active Protocol: Document 06/08/18 11:11 CLB (Rec: 06/08/18 12:40 CLB [id number]) Physical Therapy Treatment Exercises Exercises Ankle Pumps Heel Slides Short Arc Quads M7 PT-IP Assessment and Plan Start: 06/05/18 10:23 Freq: NEEDED Status: Active Protocol: Document 06/08/18 11:11 CLB (Rec: 06/08/18 12:40 CLB [id number]) PT Summary Assessment and Plan Summary Progress Towards Goals Progressing Toward Goals Slow Progress due to Pain Slow Progress due to Activity Tolerance Assessment Summary Pt ambulated ~20ft but c/o pain and nausea. Pt was only able to perform minimal amount of ther ex due to increased pain. Pt left in chair with all needs within reach, call light , ice for knee and marj angelica for nausea. RN notified about pain per pt request. Goals Bed Mobility Goal Standby Assistance Transfer Goal Standby Assistance Gait Goal Standby Assistance Gait Distance 150 Other Goals up/down 3 steps with R rail ascending and CGA Days to Meet Goals 3 Frequency of Treatment Frequency Of Treatment Twice a Day Treatment Plan Physical Therapy Treatment Plan Bed Mobility Training Transfer Training Gait Training Therapeutic Exercise Balance Retraining Post Op Education Discharge Planning Hot or Cold Pack Neuromuscular Re-ed Other Recommendations and Next Treatment gait, ther ex Focus Recommendations To Nursing Amount of Assist Needed 1 Person Assist Discharge Recommendations PT Discharge Recommendations Home with Assistance SNF Rehab Outpatient PT Other Discharge Recommendations Home with assist and OP PT vs SNF rehab
--- NOTE | 2018-06-08 15:58 | CM.DPC ---
DCP Cont: Left message for Carla Montes at orthopedics office, with triage nurse. Patient not being discharged today secondary to no authorization as of yet. Did not hear back from [facility] after last phone call with update. P: DCP to continue to work with [facility] in [facility] to get her there. Will need to followup with authorization status, as well as ortho. At this time, patient is not yet able to go home, secondary to pain and increased weakness. Patient was updated today. Elaina Negro RN/Hydrometeorological Technician
[2018-06-08] MEDS: HYDROMORPHONE 0.5 MG INJ IV (16:37)
[2018-06-08] MEDS: SODIUM CHLORIDE 0.9% 250 ML 21 ML IV (22:47)
[2018-06-09] MEDS: HYDROMORPHONE 2 MG TABLET PO (01:10)
[2018-06-09 03:00] VITALS: BP 134/81; PULSE 84; RESP 16; TEMP 36.8; O2SAT 95
[2018-06-09] MEDS: HYDROCODONE/ACET 5/325 TABLET 2 TAB PO ×5 (05:00→23:19)
[2018-06-09] MEDS: PANTOPRAZOLE 40 MG TABLET PO (06:13)
[2018-06-09] MEDS: CEFAZOLIN 2 GM/100 ML FROZ.PIGGY IV ×2 (06:13→14:10)
--- NOTE | 2018-06-09 07:31 | PM.PNPO.1 ---
Subjective Date Patient Seen: 06/09/18 Time Patient Seen: 07:31 Interval history: Patient's pain is [id number]. Denies fever chills. No nausea vomiting. Patient still wishes to be discharged to senior care facility secondary to lower extremity weakness, lack of mobility and lack of assistance at home. She is otherwise without complaints this morning. Exam Vital Signs (past 8 hours): - 06/09/18 03:00 Temperature 98.2 F Pulse Rate 84 Respiratory Rate 16 Blood Pressure 134/81 Pulse Oximetry 95 Fraction of Inspired Oxygen 21 Oxygen Delivery Method Room Air Oxygen Flow Rate 0 Narrative Exam Narrative: Right knee dressing is clean, dry and intact. Neurovascular status is intact to the distal right lower extremity. Objective Labs Result Diagrams: 06/06/18 12:45 06/06/18 12:45 Assessment & Plan Post-op Postoperative Procedures Operation Date: 06/04/18 11:15 Actual Procedures Side Surgeon p Total Knee Arthroplasty Revision Right Gerry Wills MD Patient progressing slower than expected. Patient will need senior care facility placement secondary to lower extremity weakness, lack of mobility, lack of assistance at home. Discharge to senior care facility when authorized. Quality VTE Deep Vein Thrombosis/Pulmonary Embolism Present on Admission: No
--- NOTE | 2018-06-09 07:36 | P.PN_ITS ---
Subjective Date Patient Seen: 06/09/18 Time Patient Seen: 07:31 Interval history: Patient's pain is [id number]. Denies fever chills. No nausea vomiting. Patient still wishes to be discharged to [facility] facility secondary to lower extremity weakness, lack of mobility and lack of assistance at home. She is otherwise without complaints this morning. Exam Vital Signs (past 8 hours): - 06/09/18 03:00 Temperature 98.2 F Pulse Rate 84 Respiratory Rate 16 Blood Pressure 134/81 Pulse Oximetry 95 Fraction of Inspired Oxygen 21 Oxygen Delivery Method Room Air Oxygen Flow Rate 0 Narrative Exam Narrative: Right knee dressing is clean, dry and intact. Neurovascular status is intact to the distal right lower extremity. Objective Labs Result Diagrams: 06/06/18 12:45 06/06/18 12:45 Assessment & Plan Post-op Postoperative Procedures Operation Date: 06/04/18 11:15 Actual Procedures Side Surgeon p Total Knee Arthroplasty Revision Right Gerry Wills MD Patient progressing slower than expected. Patient will need usp facility placement secondary to lower extremity weakness, lack of mobility, lack of assistance at home. Discharge to usp facility when authorized. Quality VTE Deep Vein Thrombosis/Pulmonary Embolism Present on Admission: No
[2018-06-09 07:40] VITALS: BP 141/71; PULSE 79; RESP 17; TEMP 38.1; O2SAT 94
[2018-06-09] MEDS: FENOFIBRATE 160 MG TABLET PO (09:29)
[2018-06-09] MEDS: METFORMIN HCL 500 MG TABLET 250 MG PO ×2 (09:29→19:46)
[2018-06-09] MEDS: DOCUSATE 100 MG CAPSULE PO ×2 (09:31→19:45)
[2018-06-09] MEDS: ATORVASTATIN 20 MG TABLET PO (09:32)
[2018-06-09] MEDS: LISINOPRIL 10 MG TABLET 30 MG PO (09:33)
[2018-06-09] MEDS: SODIUM CHLORIDE 0.9% FLUSH 10 ML IV ×2 (10:59→19:46)
[2018-06-09 11:13] VITALS: BP 128/65; PULSE 79; RESP 16; TEMP 37.7; O2SAT 96
--- NOTE | 2018-06-09 11:31 | PC.NURSE ---
Day Shift- To clarify, Spoke with Luis E Curtis, PAC at 1130. Pt okay to have her scheduled dose of 81mg Aspirin. Pt has intolerance to aspirin with GI upset, possible GI bleed. Pt asymptomatic. Will go ahead and given scheduled dose. Pain 4-6/10 to right knee, Pain tolerable at 4/10 after receiving dose of prn [place]-1 tab. Will monitor. Ice pack also used intermittently and RLE elevation. Pt sitting in wheelchair for most of morning, ambulating in room and hallway with 1PA.
[2018-06-09] MEDS: ASPIRIN EC 81 MG TABLET PO (11:58)
[2018-06-09] MEDS: SODIUM CHLORIDE 0.9% 250 ML 21 ML IV (14:14)
[2018-06-09 15:16] VITALS: BP 136/69; PULSE 81; RESP 18; TEMP 36.8; O2SAT 94
--- NOTE | 2018-06-09 16:09 | CM.DPC ---
DCP: continued: case received, EMR for last few days reviewed and note that pt is stable for d/c to snf level care pending [employer] auth. Spoke with /ERNESTOPriyank she reports she is coming to a end in terms of getting this auth as there is some confusion re network facilities. She has sent [facility] the [facility] as both facilities are in network. Spoke now with Kaycee/ERNESTOPANTERA. She has sent all needed info to [employer] and expects an auth by tomorrow. Pt and her daughter Yojana are updated and agreeble to this plan. P: [facility] when auth is in place. Have clarified with pt that Yojana Shananathan's contact # is [phone] (not the numbers listed on the face sheet.)
--- NOTE | 2018-06-09 16:15 | PT.IPTN ---
Current Diagnoses Other chest pain (06/04/18) Nausea (06/04/18) Mechanical loosening of internal right knee prosthetic joint, subsequent encounter (06/04/18) Presence of right artificial knee joint (06/04/18) Presence of unspecified artificial knee joint (06/04/18) Surgery Performed Operation Date: 06/04/18 11:15 Actual Procedures p Total Knee Arthroplasty Revision(Right) - Gerry Wills MD Physical Therapy Treatment Note M2 PT-IP Current Condition Start: 06/05/18 10:23 Freq: NEEDED Status: Active Protocol: Document 06/05/18 09:46 RCC (Rec: 06/05/18 10:35 RCC [id number]) Physical Therapy Current Condition Current Condition Evaluation Date 06/05/18 Treatment Diagnosis R TKA revision 06/05/18, impaired activity tolerance, gait, ROM Onset Date 06/04/18 Weight Bearing Status Weight Bearing Status Weight Bear as Tolerated M3 PT-IP Subjective Start: 06/05/18 10:23 Freq: NEEDED Status: Active Protocol: Document 06/09/18 16:08 SA (Rec: 06/09/18 16:15 SA [id number]) Subjective Physical Therapy Visit Type Type Treatment Note Visit Start Time 15:15 Visit Stop Time 15:45 Total Visit Minutes 30 Notes Pt in bed, agreeable to PT. Number of BACTERIOLOGY TECHNICIAN Visits 4 Physical Therapy Visit Comments Patient Comments Pain medication has kickied in , pain level low. Therapy Pain Assessment Pain When Pain Assessed During Mobility Pain Present Pain Present Pain Reported Location Rt Knee Intensity 3 Scale Used Numeric (1 - 10) Pain Management Techniques Apply Cold Timing of Activity with Medications M4 PT-IP Mobility and Gait Start: 06/05/18 10:23 Freq: NEEDED Status: Active Protocol: Document 06/09/18 16:08 SA (Rec: 06/09/18 16:15 [id number]) PT-Bed Mobility Assessment Supine to Sit Supine to Sit Contact Guard Assistance Sit to Supine Sit to Supine Contact Guard Assistance Head of Bed Elevated Scooting Scooting to Edge of Bed Standby Assistance Scooting Up and Down in Bed Standby Assistance PT-Transfer Assessment Sit to and From Stand Sit to and from Stand Contact Guard Assistance 1 Person Assistance Equipment Transfer Assistive Device Gait Belt Front Wheeled Walker Transfers Transfer Destination Chair Toilet Transfer Technique Stand Step Pivot Transfer Ability Level of Assist Contact Guard Assistance Comments Mobility Comments Used rolled blanket around R foot to assist with SUP<>Sit and pt able to complete with SBA and increased time. Transfers with FWW and CGA, min cues for safe technique. Gait Assessment Gait Gait Assistance Required: Contact Guard Assist Distance (Feet) 100 Assistive Devices Assistive Device Gait Belt Front Wheeled Walker Gait Deviations General Gait Pattern Antalgic Decreased Stride Length Decreased Feet Clearance Flexed Trunk Step-to Gait Wide Based Gait Factors Limiting Gait Function Factors Limiting Gait Function Decreased Activity Tolerance Decreased Strength Limited Range of Motion Pain Poor Balance Comments Gait Comments Improving gait quality and distance. Pt able to WB on RLE more and correct posture with cues. Stair Climbing Assessment Evaluation Level of Assist On Stairs Minimal Assistance Devices Stair Climbing Assistive Devices Front Wheel Walker Technique/Endurance Stair Climbing Direction Ascend and Descend Stair Climbing Technique Step to Step Number of Steps Climbed 2 Query Text: Stair Climbing Set # Repetitions (reps) 1 Comments Stair Climbing Comments Used single step, min A and Mod cues for technique with FWW. Pt tolerated well. PT-Balance Assessment Sitting Balance and Reactions Static Sitting Balance Ability Good Dynamic Sitting Balance Ability Good M5 PT-IP Objective Assessments Start: 06/05/18 10:23 Freq: NEEDED Status: Active Protocol: Document 06/05/18 09:46 RCC (Rec: 06/05/18 10:35 RCC [id number]) Orientation Orientation/Cognition Level of Alertness Alert Gross Range of Motion Lower Extremity ROM Assessment Right Impaired Impairments 3-80 degrees R knee AROM Strength Comments Strength Comments unable to perform SLR on the R ; no formal MMT due to recent surgery but knee extension at least 3/5 on the R, able to activate quads for QS Sensation Assessment Sensation Gross Sensation WNL M6 PT-IP Treatment Start: 06/05/18 10:23 Freq: NEEDED Status: Active Protocol: Document 06/09/18 16:08 SA (Rec: 06/09/18 16:15 SA [id number]) Physical Therapy Treatment Exercises Exercises Ankle Pumps Gluteal Sets Quad Sets Seated Knee Flexion/Extension Education Education Provided Post-Op Packet Safety M7 PT-IP Assessment and Plan Start: 06/05/18 10:23 Freq: NEEDED Status: Active Protocol: Document 06/09/18 16:08 SA (Rec: 06/09/18 16:15 SA [id number]) PT Summary Assessment and Plan Summary Assessment Summary Pt demonstrates improving gait and ability to manage 2 steps with Min A. Decreasing pain levels. Frequency of Treatment Frequency Of Treatment Twice a Day Treatment Plan Physical Therapy Treatment Plan Bed Mobility Training Transfer Training Gait Training Therapeutic Exercise Balance Retraining Post Op Education Discharge Planning Hot or Cold Pack Neuromuscular Re-ed Recommendations To Nursing Amount of Assist Needed 1 Person Assist Discharge Recommendations PT Discharge Recommendations Home with Assistance Home Health Other Discharge Recommendations Pt improving and could possibly manage at home with help from daughters and home health.
[2018-06-09 19:45] VITALS: BP 141/74; PULSE 93; RESP 18; TEMP 36.6
[2018-06-10] VITALS: BP 142/73; PULSE 87; RESP 18; TEMP 36.7; O2SAT 96
[2018-06-10] MEDS: HYDROCODONE/ACET 5/325 TABLET 2 TAB PO ×4 (04:08→20:07)
[2018-06-10] MEDS: PANTOPRAZOLE 40 MG TABLET PO (07:04)
[2018-06-10 07:30] VITALS: BP 134/72; PULSE 72; RESP 16; TEMP 37; O2SAT 95
[2018-06-10] MEDS: ATORVASTATIN 20 MG TABLET PO (08:47)
[2018-06-10] MEDS: FENOFIBRATE 160 MG TABLET PO (08:47)
[2018-06-10] MEDS: METFORMIN HCL 500 MG TABLET 250 MG PO ×2 (08:47→20:08)
[2018-06-10] MEDS: ASPIRIN EC 81 MG TABLET PO (08:47)
[2018-06-10] MEDS: LISINOPRIL 10 MG TABLET 30 MG PO (08:47)
[2018-06-10] MEDS: DOCUSATE 100 MG CAPSULE PO ×2 (08:47→20:09)
[2018-06-10] MEDS: SODIUM CHLORIDE 0.9% FLUSH 10 ML IV ×2 (08:48→20:09)
--- NOTE | 2018-06-10 09:33 | PM.PNPO.1 ---
Subjective Date Patient Seen: 06/10/18 Time Patient Seen: 09:33 Interval history: Hospital day 7, postop day 6 following right revision total knee arthroplasty. She has remained stable. Continues have lower extremity weakness and decreased mobility. PT/OT have recommended SNF. Patient was to be discharged yesterday but no authorization by her insurance. Possible discharge to [facility] [place] today pending authorization. Exam Vital Signs (past 8 hours): - 06/10/18 07:30 Temperature 98.6 F Pulse Rate 72 Respiratory Rate 16 Blood Pressure 134/72 Pulse Oximetry 95 Fraction of Inspired Oxygen 21 Oxygen Delivery Method Room Air Oxygen Flow Rate 0 Narrative Exam Narrative: Alert, oriented no acute distress lying in bed. Legs. Aquacel dressing to right knee is dry without drainage or inflammation. No calf pain or swelling. Pulses symmetrical. Objective Labs Result Diagrams: 06/06/18 12:45 06/06/18 12:45 Assessment & Plan Post-op Postoperative Procedures Operation Date: 06/04/18 11:15 Actual Procedures Side Surgeon p Total Knee Arthroplasty Revision Right Gerry Wills MD Plan: Patient is ready for discharge to SNF once authorization is made. She does have limited mobility and leg weakness requiring further assist before going home. Quality VTE Deep Vein Thrombosis/Pulmonary Embolism Present on Admission: No
--- NOTE | 2018-06-10 09:36 | P.PN_ITS ---
Subjective Date Patient Seen: 06/10/18 Time Patient Seen: 09:33 Interval history: Hospital day 7, postop day 6 following right revision total knee arthroplasty. She has remained stable. Continues have lower extremity weakness and decreased mobility. PT/OT have recommended SNF. Patient was to be discharged yesterday but no authorization by her insurance. Possible discharge to [facility] [place] today pending authorization. Exam Vital Signs (past 8 hours): - 06/10/18 07:30 Temperature 98.6 F Pulse Rate 72 Respiratory Rate 16 Blood Pressure 134/72 Pulse Oximetry 95 Fraction of Inspired Oxygen 21 Oxygen Delivery Method Room Air Oxygen Flow Rate 0 Narrative Exam Narrative: Alert, oriented no acute distress lying in bed. Legs. Aquacel dressing to right knee is dry without drainage or inflammation. No calf pain or swelling. Pulses symmetrical. Objective Labs Result Diagrams: 06/06/18 12:45 06/06/18 12:45 Assessment & Plan Post-op Postoperative Procedures Operation Date: 06/04/18 11:15 Actual Procedures Side Surgeon p Total Knee Arthroplasty Revision Right Gerry Wills MD Plan: Patient is ready for discharge to SNF once authorization is made. She d oes have limited mobility and leg weakness requiring further assist before going home. Quality VTE Deep Vein Thrombosis/Pulmonary Embolism Present on Admission: No
--- NOTE | 2018-06-10 09:37 | PM.DS.1 ---
History of Present Illness Chief complaint: Right Total Knee Arthroplasty Revision [id number] Discharge Providers Date of admission: 06/04/18 08:47 Discharge Date: 06/10/18 Primary care physician: Aby Sol MD Consults: 06/04/18 17:27 Consult to Discharge Planning Routine Comment: Consult to Physical Therapy Evaluate & Treat Comment: Physician Instructions: postop TKA protocol Consult to Respiratory Therapy Evaluate & Treat Comment: Physician Instructions: Evaluate and treat 06/06/18 07:00 Consult to Hospitalist Service Routine Comment: re: chest pain Consulting Provider: Jade Perkins Reason for consultation: chest pain Has provider been notified: Yes Discharge provider: Reed Neumann PA-C Exam Vital Signs (past 8 hours): - 06/10/18 07:30 Temperature 98.6 F Pulse Rate 72 Respiratory Rate 16 Blood Pressure 134/72 Pulse Oximetry 95 Fraction of Inspired Oxygen 21 Oxygen Delivery Method Room Air Oxygen Flow Rate 0 Objective Labs Result Diagrams: 06/06/18 12:45 06/06/18 12:45 Discharge Plan Discharge Plan Patient Disposition: SNF Transfer to: [facility] Under care of provider: Facility Transportation: Facility vehicle Consult as needed: Dental, Hearing, Mental health, Podiatry and Vision I certify the postop hospital fpc care is medically necessary on a continuing basis for any conditions for which he/ she received care during this hospitalization.: Yes The receiving facility has agreed to accept transfer and provide medical treatment.: Yes Discharge Med Rec/Prescriptions Prescriptions: New hydrocodone-acetaminophen 5-325 mg Tablet 2 tab PO Q4HR PRN (Reason: Pain, Severe (7-10)) Qty: 60 RF: 0 aspirin 81 mg Tablet,Delayed Release (Dr/Ec) 81 mg PO DAILY Qty: 30 RF: 0 ondansetron 4 mg Tablet,Disintegrating 4 mg PO Q4HR PRN (Reason: Nausea) Qty: 30 RF: 0 Continued metformin 500 mg Tablet 250 mg PO BID Qty: 0 RF: 0 multivitamin Capsule 1 cap PO QAM Qty: 0 RF: 0 ranitidine HCl 75 mg Tablet 75 mg PO DAILY PRN (Reason: Acid Reflux) Qty: 0 RF: 0 atorvastatin 20 mg Tablet 20 mg PO DAILY RF: 0 lisinopril 30 mg Tablet 30 mg PO DAILY RF: 0 fenofibrate 160 mg Tablet 160 mg PO DAILY RF: 0 Discontinued hydrocodone-acetaminophen 7.5-325 mg Tablet 1 tab PO Q4-6H PRN (Reason: pain) Qty: 0 RF: 0 Follow up/Referrals: Gerry Wills MD [Physician] - Discharge Health Status Multidrug resistant organism: No MDRO Precautions: [place] Provider Discharge Instructions Diet: Carb-consistent/Diabetic Liquid consistency: Normal/Thin Food texture: Regular Activity: Weightbearing as tolerated, use walker until cleared by physical therapy. Elevate operative leg regularly to reduce swelling. Cold/Heat Therapy: Apply ice to affected area for 20 minutes at a time at least hourly while awake. Skin/Wound/Dressing Care Report to your healthcare provider any signs of infection, such as:: chills, fever, increased pain, unusual drainage and unusual redness Dressing: Keep dressing clean, dry, and intact. May shower with it in place but no soaking. Special Rehabilitation Services Reason for rehabilitation: Post-operative therapy Rehab type: Physical therapy and Occupational therapy Visit Report/Discharge Packet Instructions: DI for Knee Replacement, How to Prevent Falls, DI for Postoperative Pain Discharge Data Primary Care Provider: Aby Sol Attending Provider: Gerry Wills Admit Date/Time: 06/04/18 08:47 Quality VTE Deep Vein Thrombosis/Pulmonary Embolism Present on Admission: No
--- NOTE | 2018-06-10 09:43 | P.DS_ITS ---
History of Present Illness Chief complaint: Right Total Knee Arthroplasty Revision 13075 Discharge Providers Date of admission: 06/04/18 08:47 Discharge Date: 06/10/18 Primary care physician: Aby Sol MD Consults: 06/04/18 17:27 Consult to Discharge Planning Routine Comment: Consult to Physical Therapy Evaluate & Treat Comment: Physician Instructions: postop TKA protocol Consult to Respiratory Therapy Evaluate & Treat Comment: Physician Instructions: Evaluate and treat 06/06/18 07:00 Consult to Hospitalist Service Routine Comment: re: chest pain Consulting Provider: Jade Perkins Reason for consultation: chest pain Has provider been notified: Yes Discharge provider: Reed Neumann PA-C Exam Vital Signs (past 8 hours): - 06/10/18 07:30 Temperature 98.6 F Pulse Rate 72 Respiratory Rate 16 Blood Pressure 134/72 Pulse Oximetry 95 Fraction of Inspired Oxygen 21 Oxygen Delivery Method Room Air Oxygen Flow Rate 0 Objective Labs Result Diagrams: 06/06/18 12:45 06/06/18 12:45 Discharge Plan Discharge Plan Patient Disposition: SNF Transfer to: [facility], [facility] Under care of provider: Facility Transportation: Facility vehicle Consult as needed: Dental, Hearing, Mental health, Podiatry and Vision I certify the postop hospital shelter care is medically necessary on a c ontinuing basis for any conditions for which he/ she received care during this hospitalization.: Yes The receiving facility has agreed to accept transfer and provide medical treatment.: Yes Discharge Med Rec/Prescriptions Prescriptions: New hydrocodone-acetaminophen 5-325 mg Tablet 2 tab PO Q4HR PRN (Reason: Pain, Severe (7-10)) Qty: 60 RF: 0 aspirin 81 mg Tablet,Delayed Release (Dr/Ec) 81 mg PO DAILY Qty: 30 RF: 0 ondansetron 4 mg Tablet,Disintegrating 4 mg PO Q4HR PRN (Reason: Nausea) Qty: 30 RF: 0 Continued metformin 500 mg Tablet 250 mg PO BID Qty: 0 RF: 0 multivitamin Capsule 1 cap PO QAM Qty: 0 RF: 0 ranitidine HCl 75 mg Tablet 75 mg PO DAILY PRN (Reason: Acid Reflux) Qty: 0 RF: 0 atorvastatin 20 mg Tablet 20 mg PO DAILY RF: 0 lisinopril 30 mg Tablet 30 mg PO DAILY RF: 0 fenofibrate 160 mg Tablet 160 mg PO DAILY RF: 0 Discontinued hydrocodone-acetaminophen 7.5-325 mg Tablet 1 tab PO Q4-6H PRN (Reason: pain) Qty: 0 RF: 0 Follow up/Referrals: Gerry Wills MD [Physician] - Discharge Health Status Multidrug resistant organism: No MDRO Precautions: Foley Provider Discharge Instructions Diet: Carb-consistent/Diabetic Liquid consistency: Normal/Thin Food texture: Regular Activity: Weightbearing as tolerated, use walker until cleared by physical therapy. Elevate operative leg regularly to reduce swelling. Cold/Heat Therapy: Apply ice to affected area for 20 minutes at a time at least hourly while awake. Skin/Wound/Dressing Care Report to your healthcare provider any signs of infection, such as:: chills, fever, increased pain, unusual drainage and unusual redness Dressing: Keep dressing clean, dry, and intact. May shower with it in place but no soaking. Special Rehabilitation Services Reason for rehabilitation: Post-operative therapy Rehab type: Physical therapy and Occupational therapy Visit Report/Discharge Packet Instructions: DI for Knee Replacement, How to Prevent Falls, DI for Postoperative Pain Discharge Data Primary Care Provider: Aby Sol Attending Provider: Gerry Wills Admit Date/Time: 06/04/18 08:47 Quality VTE Deep Vein Thrombosis/Pulmonary Embolism Present on Admission: No
--- NOTE | 2018-06-10 09:48 | PT.IPTN ---
Current Diagnoses Other chest pain (06/04/18) Nausea (06/04/18) Mechanical loosening of internal right knee prosthetic joint, subsequent encounter (06/04/18) Presence of right artificial knee joint (06/04/18) Presence of unspecified artificial knee joint (06/04/18) Surgery Performed Operation Date: 06/04/18 11:15 Actual Procedures p Total Knee Arthroplasty Revision(Right) - Gerry Wills MD Physical Therapy Treatment Note M2 PT-IP Current Condition Start: 06/05/18 10:23 Freq: NEEDED Status: Active Protocol: Document 06/05/18 09:46 [facility] (Rec: 06/05/18 10:35 [facility] [id number]) Physical Therapy Current Condition Current Condition Evaluation Date 06/05/18 Treatment Diagnosis R TKA revision 06/05/18, impaired activity tolerance, gait, ROM Onset Date 06/04/18 Weight Bearing Status Weight Bearing Status Weight Bear as Tolerated M3 PT-IP Subjective Start: 06/05/18 10:23 Freq: NEEDED Status: Active Protocol: Document 06/10/18 09:14 CLB (Rec: 06/10/18 09:48 CLB [id number]) Subjective Physical Therapy Visit Type Type Treatment Note Visit Start Time 09:14 Visit Stop Time 09:37 Total Visit Minutes 23 Number of DIAMOND DRILLER HELPER Visits 5 Physical Therapy Visit Comments Patient Comments Pt in chair and agreeable to ambulate. Therapy Pain Assessment Pain When Pain Assessed During Mobility Pain Present Pain Present Pain Reported Location Rt Knee Intensity 6 Scale Used Numeric (1 - 10) Pain Management Techniques Apply Cold Timing of Activity with Medications M4 PT-IP Mobility and Gait Start: 06/05/18 10:23 Freq: NEEDED Status: Active Protocol: Document 06/10/18 09:14 CLB (Rec: 06/10/18 09:48 CLB [id number]) PT-Transfer Assessment Sit to and From Stand Sit to and from Stand Contact Guard Assistance 1 Person Assistance Equipment Transfer Assistive Device Gait Belt Front Wheeled Walker Transfers Transfer Destination Chair Transfer Technique Stand Step Pivot Transfer Ability Level of Assist Contact Guard Assistance Comments Mobility Comments Pt is CGA for sit-stand. Gait Assessment Gait Gait Assistance Required: Contact Guard Assist Distance (Feet) 100 Assistive Devices Assistive Device Gait Belt Front Wheeled Walker Gait Deviations General Gait Pattern Antalgic Decreased Stride Length Decreased Feet Clearance Flexed Trunk Step-to Gait Wide Based Gait Factors Limiting Gait Function Factors Limiting Gait Function Decreased Activity Tolerance Decreased Strength Limited Range of Motion Pain Poor Balance Comments Gait Comments Pt continues to improve with gait tolerance. M5 PT-IP Objective Assessments Start: 06/05/18 10:23 Freq: NEEDED Status: Active Protocol: Document 06/05/18 09:46 RCC (Rec: 06/05/18 10:35 RCC [id number]) Orientation Orientation/Cognition Level of Alertness Alert Gross Range of Motion Lower Extremity ROM Assessment Right Impaired Impairments 3-80 degrees R knee AROM Strength Comments Strength Comments unable to perform SLR on the R ; no formal MMT due to recent surgery but knee extension at least 3/5 on the R, able to activate quads for QS Sensation Assessment Sensation Gross Sensation WNL M6 PT-IP Treatment Start: 06/05/18 10:23 Freq: NEEDED Status: Active Protocol: Document 06/10/18 09:14 CLB (Rec: 06/10/18 09:48 CLB [id number]) Physical Therapy Treatment Exercises Exercises Ankle Pumps Quad Sets Heel Slides Straight Leg Raises Short Arc Quads Education Education Provided Post-Op Packet Safety M7 PT-IP Assessment and Plan Start: 06/05/18 10:23 Freq: NEEDED Status: Active Protocol: Document 06/10/18 09:14 CLB (Rec: 06/10/18 09:48 CLB [id number]) PT Summary Assessment and Plan Summary Assessment Summary Pt continues to improve with gait tolerance and requires AAROM with SLR and SAQ. Goals Bed Mobility Goal Standby Assistance Transfer Goal Standby Assistance Gait Goal Standby Assistance Gait Distance 150 Other Goals up/down 3 steps with R rail ascending and CGA Days to Meet Goals 3 Frequency of Treatment Frequency Of Treatment Twice a Day Treatment Plan Physical Therapy Treatment Plan Bed Mobility Training Transfer Training Gait Training Therapeutic Exercise Balance Retraining Post Op Education Discharge Planning Hot or Cold Pack Neuromuscular Re-ed Other Recommendations and Next Treatment gait, ther ex Focus Recommendations To Nursing Amount of Assist Needed 1 Person Assist Discharge Recommendations PT Discharge Recommendations Home with Assistance Home Health Other Discharge Recommendations Pt improving and could possibly manage at home with help from daughters and home health.
--- NOTE | 2018-06-10 12:35 | OT.IP.EVAL ---
Current Diagnoses Other chest pain (06/04/18) Nausea (06/04/18) Mechanical loosening of internal right knee prosthetic joint, subsequent encounter (06/04/18) Presence of right artificial knee joint (06/04/18) Presence of unspecified artificial knee joint (06/04/18) Surgery Performed Operation Date: 06/04/18 11:15 Actual Procedures p Total Knee Arthroplasty Revision(Right) - Gerry Wills MD Past Medical History (Last Reviewed 06/06/18 @ 11:10 by Jade Perkins DO) Acid reflux (Acute) Arthritis (Acute) Chronic neck and back pain (Acute) Diabetes (Acute) Edema (Acute) Elbow injury (Acute) HTN (hypertension) (Acute) History of hysterectomy (Acute) Hyperlipidemia (Acute) Osteoarthritis (Acute) Surgical History (Last Updated 06/06/18 @ 16:52 by Jade Perkins DO) History of arthroplasty of left knee (Acute) History of arthroplasty of right knee (Acute 09/01/11) Hx of appendectomy (Acute) Status post revision of total replacement of right knee (Acute) Occupational Therapy Inpatient Evaluation/Re-Eval M1 PT/OT-IP Prior Functional Status Start: 06/05/18 10:23 Freq: NEEDED Status: Active Protocol: Document 06/05/18 09:46 RCC (Rec: 06/05/18 10:35 RCC [id number]) Medical Review Prior Functional Status Medical History Reviewed Yes Mobility and Gait modified indep. gait with occasional FWW usage Activities of Daily Living and IADL's modified indep. ADLs Social History Household Members spouse Living Arrangements Mobile home Number of Floors (Floors) One Floor Number of Stairs To Enter/Railing? 3 SE R ascending rail Home Environment Standard Height Toilet Tub/Shower Home Equipment Front Wheel Walker Shower Seat with Backrest Hand Held Shower Additional Social History Comment Lives with in [place] in 55+ community, daughter lives in [place] can also assist with some tasks at home . Pt underwent R TKA revision on 06/04/18, original surgery ~7 yrs ago. M1 PT/OT-IP Prior Functional Status Start: 06/10/18 12:02 Freq: NEEDED Status: Active Protocol: Document 06/10/18 12:02 CCC (Rec: 06/10/18 12:34 CCC [id number]) Medical Review Prior Functional Status Medical History Reviewed Yes Communication Independent. Mobility and Gait modified indep. gait with occasional FWW usage Activities of Daily Living and IADL's modified indep. ADLs, pt able to cook, clean, and did the bills. Pt no longer drives. Prior Functional Level (Other details) Pt's not able to physical assist with any needs as in poor health per pt. Social History Household Members spouse Living Arrangements Mobile home Number of Floors (Floors) One Floor Number of Stairs To Enter/Railing? 3 SE R ascending rail Home Environment Standard Height Toilet Tub/Shower Home Equipment Front Wheel Walker Shower Seat with Backrest Hand Held Shower Additional Social History Comment Lives with in [place] in 55+ community, daughter lives in [place] can also assist with some tasks at home . Pt underwent R TKA revision on 06/04/18, original surgery ~7 yrs ago. M2 OT-IP Current Condition Start: 06/10/18 12:02 Freq: Status: Active Protocol: Document 06/10/18 12:02 [facility] (Rec: 06/10/18 12:34 [facility] [id number]) Occupational Therapy Current Condition Current Condition Evaluation Date 06/10/18 Treatment Diagnosis R TKA revision Diagnosis Onset Date 06/04/18 Weight Bearing Status Weight Bearing Status Weight Bear as Tolerated M3 OT- IP Subjective and Pain Start: 06/10/18 12:02 Freq: Status: Active Protocol: Document 06/10/18 12:02 [facility] (Rec: 06/10/18 12:34 [facility] [id number]) OT- Subjective Occupational Therapy Visit Type Type Initial Evaluation Visit Start Time 11:15 Visit Stop Time 12:00 Total Visit Minutes 45 Occupational Therapy Visit Comments Patient Comments Pt agreeable to shower. Pt very concerned about going home as not able to assist with her care physically. Patient/Caregiver Goals Pt wanting to go to skilled rehab prior to going home, as feels will not be able to assist enough as in poor health. OT Pain Assessment Pain When Pain Assessed At Rest Pain Present Pain Present Pain Reported Location Rt Knee Intensity 6 Scale Used Numeric (1 - 10) M4 OT- IP ADL's Start: 06/10/18 12:02 Freq: Status: Active Protocol: Document 06/10/18 12:02 [facility] (Rec: 06/10/18 12:34 [facility] [id number]) OT ADL-Dressing General Eval Upper Body Dressing Ability Standby Assistance Lower Body Dressing Ability Moderate Assistance Areas Needing Assistance Underpants/Brief Socks Comments OT Dressing Comments Pt able to bend forward to deirdre socks/brief with no difficulty, however unable to lift her RLE up so able to deirdre socks/brief and MAX A and once over her feet needing CGA/GERALD for balance while pulling up brief over her hips. OT ADL-Toileting General Evaluation Toileting Ability Contact Guard Assistance Areas Needing Assistance Manage Clothing Comments OT Toileting Comments Pt needing assist to stand with CGA while standing to do pericare needs. Pt as tires needing more assist to stand initially GERALD and when reminded to sit to take brief off first as pt forgot to take brief off while sitting on the toilet right before stepping into the shower. MODA to stand the second time. OT ADL-Bathing Bathing Type Bathing Type Shower General Evaluation Bathing Ability Minimal Assistance Areas Needing Assistance Wash/Dry Back Devices Bathing Equipment Shower Chair without Arms Grab Bars Comments OT Bathing Comments Simulated pt to step over the edge of tub as tub/shower at home and pt will not be able to do at this time, therefore may need to get tub bench. Pt needing assist to wash/dry her back. Pt relying heavily on grab bars to come to stand, otherwise pt needing MODA to stand. M5 OT- IP IADL's Start: 06/10/18 12:02 Freq: Status: Active Protocol: Document 06/10/18 12:02 [facility] (Rec: 06/10/18 12:34 [facility] [id number]) OT-Instrumental Activities of Daily Living Medication Management Medication Management Comments Pt states does her own medications. Money Management Money Management Comments Pt's pays the bills. Meal Preparation Meal Preparation Comments Pt states does all meals. Logging Crew Supervisor Logging Crew Supervisor Comments Pt states does all IADL needs as well. Driving Driving Comments Pt states no longer drives. M6 OT- IP Functional Cognition Start: 06/10/18 12:02 Freq: Status: Active Protocol: Document 06/10/18 12:02 [facility] (Rec: 06/10/18 12:34 [facility] [id number]) Cognitive Factors Limiting Selfcare Function Cognitive Ability Level of Alertness Alert Patient Orientation Name Day of Week Place Situation Attention Span Ability Capable of Focused Attention Capable of Sustained Attention Ability to Follow Commands Able to Follow One Step Commands Memory Description Short Term Impaired Safety Awareness Underestimates Need for Assistance Problem Solving Ability Needs Assist to Identify Solutions Executive Function Ability Unable to Remember Details Cognitive Comments Cognitive Assessment Comments Pt forgetting to either pull up brief or take off brief prior to showering. Pt trying to stand and take off her brief versus sitting to take it off first as she is unsteady for dynamic standing at this time. OT- Vision and Hearing OT- Hearing Assessment OT- Hearing Assessment WFL M7 OT- IP Mobility and Balance Start: 06/10/18 12:02 Freq: Status: Active Protocol: Document 06/10/18 12:02 [facility] (Rec: 06/10/18 12:34 [facility] [id number]) OT-Transfer Assessment Sit to and From Stand Sit to and from Stand Contact Guard Assistance Minimal Assistance Moderate Assistance Transfers Transfer Ability Contact Guard Assistance Technique Transfer Destination Chair Shower Stall Toilet Transfer Technique Stand Step Pivot Devices Transfer Assistive Devices Gait Belt Front Wheeled Walker Comments Mobility Comments Pt needing more assist from sit to stand especially as she tires and from lower surfaces . Pt states uses the bathroom 2-3 times at night and has a low toilet. OT- Balance Assessment Sitting Balance and Reactions Static Sitting Balance Ability Normal Dynamic Sitting Balance Ability Normal Standing Balance and Reactions Static Standing Balance Ability Good Dynamic Standing Balance Ability Fair M8 OT- IP Objective Assessments Start: 06/10/18 12:02 Freq: Status: Active Protocol: Document 06/10/18 12:02 [facility] (Rec: 06/10/18 12:34 [facility] [id number]) OT Gross Range of Motion Upper Extremity Range of Motion Assessment Within Functional Limits OT Strength Comments Strength Comments RUE 4-/5, LUE4/5 OT-Muscle Tone Assessment Muscle Tone WNL Yes M9 OT- IP Assessment and Plan Start: 06/10/18 12:02 Freq: Status: Active Protocol: Document 06/10/18 12:02 [facility] (Rec: 06/10/18 12:34 [facility] [id number]) OT Summary Assessment and Plan Potential Rehabilitation Potential Excellent Analytic Complexity at Evaluation Low Summary OT Impairments Pain Strength Balance Functional Cognition Functional Mobility Dressing Toileting Bathing Toilet Transfers Shower Transfers Progress Towards Goals Progressing Toward Goals Assessment Summary Pt low complexity and main barriers are steps, decreased ability to lift RLE for LB dressing needs, needing up to MODA to stand as tires and from lower surfaces. At this time , pt's care is too great for as pt needs to be SBA for all needs at home as unable to provide any lifting. Pt would benefit and is an excellent candidate for short skilled rehab stay prior to going home. Goals Grooming Goal Independent Dressing Goal Standby Assistance Toileting Goal Standby Assistance Bathing Goal Standby Assistance Toilet Transfer Goal Standby Assistance Shower Transfer Goal Standby Assistance Patient/Caregiver Education Goal Caregiver Independent Assisting Patient Days to Meet Goals 5 Frequency of Treatment Frequency Of Treatment Once a Day Treatment Plan OT Treatment Plan ADL Training Functional Cognition Training Functional Mobility Patient/Family Education Discharge Planning Other Treatment Recommendations and Next Practice LB dressing. Family Treatment Focus training. Discharge Recommendations OT Discharge Recommendations SNF Rehab Home Equipment Needs Jennifer sanchez, LUK[facility]
[2018-06-10 13:04] VITALS: BP 128/60; PULSE 90; RESP 14; TEMP 36.4; O2SAT 97
--- NOTE | 2018-06-10 13:15 | CM.DPC ---
Addendum entered by Shayy Ray LPN 06/10/18 15:37: Just received update from Kaycee. She states that [facility] has reviewed today's notes, has sent them on to physician review and a decision will be make tomorrow morning. Asked if this was because pt was showing such improvement and she said that is the likely reason. Discussed with pt's daughter Yojana. She says she is aware that pt has continued to progress well with therapy and, if a denial is given tomorrow she will take pt home. She will be here tomorrow. Will check in with Mariann and Marii in the morning as Kaycee is off and expect either a snf d/c or a home d/c tomorrow. Original Note: DCP: continued: spoke this morning after Team Rounds with Kaycee/RADHA and also with Marii, here to meet pt and assist with the d/c process. Kaycee reported that [facility] was requesting updated therapy notes. Discovered that OT had not been involved in this case so glenna obtained for same. the PT and OT notes are now in the system and have faxed them to Kaycee at fax [phone] as per her request. She does say she expects an answer from [facility] today. Discussed with ortho RUMA Neumann and confirmed that the snf orders are all in place and no changes have been make since those done by RUMA Curtis earlier this week.
--- NOTE | 2018-06-10 14:28 | PT.IPTN ---
Current Diagnoses Other chest pain (06/04/18) Nausea (06/04/18) Mechanical loosening of internal right knee prosthetic joint, subsequent encounter (06/04/18) Presence of right artificial knee joint (06/04/18) Presence of unspecified artificial knee joint (06/04/18) Surgery Performed Operation Date: 06/04/18 11:15 Actual Procedures p Total Knee Arthroplasty Revision(Right) - Gerry Wills MD Physical Therapy Treatment Note M2 PT-IP Current Condition Start: 06/05/18 10:23 Freq: NEEDED Status: Active Protocol: Document 06/05/18 09:46 RCC (Rec: 06/05/18 10:35 RCC [id number]) Physical Therapy Current Condition Current Condition Evaluation Date 06/05/18 Treatment Diagnosis R TKA revision 06/05/18, impaired activity tolerance, gait, ROM Onset Date 06/04/18 Weight Bearing Status Weight Bearing Status Weight Bear as Tolerated M3 PT-IP Subjective Start: 06/05/18 10:23 Freq: NEEDED Status: Active Protocol: Document 06/10/18 13:45 CLB (Rec: 06/10/18 14:28 CLB [email or web address]) Subjective Physical Therapy Visit Type Type Treatment Note Visit Start Time 13:45 Visit Stop Time 14:15 Total Visit Minutes 30 Number of SOLAR LAB TECHNICIAN Visits 6 Physical Therapy Visit Comments Patient Comments Pt in chair and agreeable to ambulate. Therapy Pain Assessment Pain When Pain Assessed During Mobility Pain Present Pain Present Pain Reported Location Rt Knee Intensity 6 Scale Used Numeric (1 - 10) Pain Management Techniques Apply Cold Timing of Activity with Medications M4 PT-IP Mobility and Gait Start: 06/05/18 10:23 Freq: NEEDED Status: Active Protocol: Document 06/10/18 13:45 CLB (Rec: 06/10/18 14:28 CLB [email or web address]) PT-Bed Mobility Assessment Supine to Sit Supine to Sit Contact Guard Assistance Sit to Supine Sit to Supine Contact Guard Assistance Head of Bed Elevated Scooting Scooting to Edge of Bed Standby Assistance Scooting Up and Down in Bed Standby Assistance PT-Transfer Assessment Sit to and From Stand Sit to and from Stand Contact Guard Assistance 1 Person Assistance Equipment Transfer Assistive Device Gait Belt Front Wheeled Walker Transfers Transfer Destination Bed Chair Toilet Transfer Technique Stand Step Pivot Transfer Ability Level of Assist Contact Guard Assistance Comments Mobility Comments Pt is CGA for all mobility and transfers. Pt able to doff/ deirdre brief and perform own pericare. Gait Assessment Gait Gait Assistance Required: Contact Guard Assist Distance (Feet) 30 Assistive Devices Assistive Device Gait Belt Front Wheeled Walker Gait Deviations General Gait Pattern Antalgic Decreased Stride Length Decreased Feet Clearance Flexed Trunk Step-to Gait Wide Based Gait Factors Limiting Gait Function Factors Limiting Gait Function Decreased Activity Tolerance Decreased Strength Limited Range of Motion Pain Poor Balance Comments Gait Comments Pt trialed stairs and was unable to amubulate as far this session due to increased pain and nausea. Stair Climbing Assessment Evaluation Level of Assist On Stairs Minimal Assistance 1 Person Assistance Devices Stair Climbing Assistive Devices Left Railing Right Railing Technique/Endurance Stair Climbing Direction Ascend and Descend Stair Climbing Technique Step to Step Number of Steps Climbed 3 Query Text: Stair Climbing Set # Repetitions (reps) 2 Comments Stair Climbing Comments Pt able to climb stairs with CGA with bilateral rails and Min A with left ascending rail . Daughter present for stair training. M5 PT-IP Objective Assessments Start: 06/05/18 10:23 Freq: NEEDED Status: Active Protocol: Document 06/05/18 09:46 RCC (Rec: 06/05/18 10:35 RCC [id number]) Orientation Orientation/Cognition Level of Alertness Alert Gross Range of Motion Lower Extremity ROM Assessment Right Impaired Impairments 3-80 degrees R knee AROM Strength Comments Strength Comments unable to perform SLR on the R ; no formal MMT due to recent surgery but knee extension at least 3/5 on the R, able to activate quads for QS Sensation Assessment Sensation Gross Sensation WNL M6 PT-IP Treatment Start: 06/05/18 10:23 Freq: NEEDED Status: Active Protocol: Document 06/10/18 09:14 CLB (Rec: 06/10/18 09:48 CLB [id number]) Physical Therapy Treatment Exercises Exercises Ankle Pumps Quad Sets Heel Slides Straight Leg Raises Short Arc Quads Education Education Provided Post-Op Packet Safety M7 PT-IP Assessment and Plan Start: 06/05/18 10:23 Freq: NEEDED Status: Active Protocol: Document 06/10/18 13:45 CLB (Rec: 06/10/18 14:28 CLB [email or web address]) PT Summary Assessment and Plan Summary Assessment Summary Pt able to perform sit-supine using GB to assist LLE into bed. Pt c/o increased pain and nausea after stair training. Pt is CGA for all mobility and transfers. Goals Bed Mobility Goal Standby Assistance Transfer Goal Standby Assistance Gait Goal Standby Assistance Gait Distance 150 Other Goals up/down 3 steps with R rail ascending and CGA Days to Meet Goals 3 Frequency of Treatment Frequency Of Treatment Twice a Day Treatment Plan Physical Therapy Treatment Plan Bed Mobility Training Transfer Training Gait Training Therapeutic Exercise Balance Retraining Post Op Education Discharge Planning Hot or Cold Pack Neuromuscular Re-ed Other Recommendations and Next Treatment gait, ther ex Focus Recommendations To Nursing Amount of Assist Needed 1 Person Assist Discharge Recommendations PT Discharge Recommendations Home with Assistance Home Health Other Discharge Recommendations Pt improving and could possibly manage at home with help from daughters and home health vs SNF rehab
[2018-06-10 15:20] VITALS: BP 142/67; PULSE 85; RESP 20; TEMP 36.8; O2SAT 96
[2018-06-10 19:45] VITALS: BP 147/67; PULSE 84; RESP 20; TEMP 36.6
--- NOTE | 2018-06-10 20:19 | PC.NURSE ---
Assumed care of pt at 1900. Pt awake resting in bed during bedside hand-off. Up to bathroom 1 pa/sba w/fww. Steady on feet but slow to move. Reports pain to R. knee, Medicated with 2 tabs [place]. Ice packs to R. Knee. Drsg c/d/i. Denies nausea. Reports flatus and states she had small BM today but wants her bowels to move more. Declined offer of prune juice. Using I.S. Enc to use 10x/hr while awake. Requests SCD's off for a break. Bed alarm on. Pt verbalized she will call for needs.
[2018-06-11 00:40] VITALS: BP 137/75; PULSE 95; RESP 18; TEMP 36.2; O2SAT 95
[2018-06-11] MEDS: HYDROCODONE/ACET 5/325 TABLET 2 TAB PO ×3 (00:44→12:25)
[2018-06-11] MEDS: PANTOPRAZOLE 40 MG TABLET PO (06:06)
[2018-06-11 07:55] VITALS: BP 135/67; PULSE 85; RESP 16; TEMP 36.4; O2SAT 93
[2018-06-11] MEDS: ATORVASTATIN 20 MG TABLET PO (09:16)
[2018-06-11] MEDS: ASPIRIN EC 81 MG TABLET PO (09:16)
[2018-06-11] MEDS: METFORMIN HCL 500 MG TABLET 250 MG PO (09:16)
[2018-06-11] MEDS: DOCUSATE 100 MG CAPSULE PO (09:16)
[2018-06-11] MEDS: FENOFIBRATE 160 MG TABLET PO (09:16)
[2018-06-11] MEDS: LISINOPRIL 10 MG TABLET 30 MG PO (09:16)
--- NOTE | 2018-06-11 11:05 | PT.IPTN ---
Current Diagnoses Other chest pain (06/04/18) Nausea (06/04/18) Mechanical loosening of internal right knee prosthetic joint, subsequent encounter (06/04/18) Presence of right artificial knee joint (06/04/18) Presence of unspecified artificial knee joint (06/04/18) Surgery Performed Operation Date: 06/04/18 11:15 Actual Procedures p Total Knee Arthroplasty Revision(Right) - Gerry Wills MD Physical Therapy Treatment Note M2 PT-IP Current Condition Start: 06/05/18 10:23 Freq: NEEDED Status: Active Protocol: Document 06/05/18 09:46 RCC (Rec: 06/05/18 10:35 RCC [id number]) Physical Therapy Current Condition Current Condition Evaluation Date 06/05/18 Treatment Diagnosis R TKA revision 06/05/18, impaired activity tolerance, gait, ROM Onset Date 06/04/18 Weight Bearing Status Weight Bearing Status Weight Bear as Tolerated M3 PT-IP Subjective Start: 06/05/18 10:23 Freq: NEEDED Status: Active Protocol: Document 06/11/18 09:25 (Rec: 06/11/18 11:05 [email or web address]) Subjective Physical Therapy Visit Type Type Discharge Summary Visit Start Time 09:25 Visit Stop Time 09:50 Total Visit Minutes 25 Notes Pt's dtr attended session Number of SALES AND MARKETING INTERN Visits 0 Physical Therapy Visit Comments Patient Comments Pt in chair and agreeable to ambulate. Therapy Pain Assessment Pain When Pain Assessed During Mobility Pain Present Pain Present Pain Reported Location Rt Knee Intensity 6 Scale Used Numeric (1 - 10) Pain Management Techniques Apply Cold Timing of Activity with Medications M4 PT-IP Mobility and Gait Start: 06/05/18 10:23 Freq: NEEDED Status: Active Protocol: Document 06/11/18 09:25 (Rec: 06/11/18 11:05 [email or web address]) PT-Bed Mobility Assessment Scooting Scooting to Edge of Bed Standby Assistance PT-Transfer Assessment Sit to and From Stand Sit to and from Stand Standby Assistance Use of Upper Extremities Equipment Transfer Assistive Device Gait Belt Front Wheeled Walker Transfers Transfer Destination Bed Chair Transfer Technique Stand Step Pivot Transfer Ability Level of Assist Standby Assistance Comments Mobility Comments SBA for all mobility and transfers. Gait Assessment Gait Gait Assistance Required: Standby Assistance Distance (Feet) 300 Assistive Devices Assistive Device Gait Belt Front Wheeled Walker Gait Deviations General Gait Pattern Antalgic Decreased Stride Length Decreased Feet Clearance Flexed Trunk Step-to Gait Wide Based Gait Factors Limiting Gait Function Factors Limiting Gait Function Decreased Activity Tolerance Decreased Strength Limited Range of Motion Pain Poor Balance Comments Gait Comments amb from stair back to her room with SBA FWW. cues for upright posture. Stair Climbing Assessment Evaluation Level of Assist On Stairs Contact Guard Assistance Devices Stair Climbing Assistive Devices Right Railing Technique/Endurance Stair Climbing Direction Ascend and Descend Stair Climbing Technique Step to Step Number of Steps Climbed 3 Query Text: Stair Climbing Set # Repetitions (reps) 2 Comments Stair Climbing Comments climb stairs with R railing today CGA. Max cues for up with the good and down with the bad. M5 PT-IP Objective Assessments Start: 06/05/18 10:23 Freq: NEEDED Status: Active Protocol: Document 06/05/18 09:46 RCC (Rec: 06/05/18 10:35 RCC [id number]) Orientation Orientation/Cognition Level of Alertness Alert Gross Range of Motion Lower Extremity ROM Assessment Right Impaired Impairments 3-80 degrees R knee AROM Strength Comments Strength Comments unable to perform SLR on the R ; no formal MMT due to recent surgery but knee extension at least 3/5 on the R, able to activate quads for QS Sensation Assessment Sensation Gross Sensation WNL M6 PT-IP Treatment Start: 06/05/18 10:23 Freq: NEEDED Status: Active Protocol: Document 06/10/18 09:14 CLB (Rec: 06/10/18 09:48 CLB [id number]) Physical Therapy Treatment Exercises Exercises Ankle Pumps Quad Sets Heel Slides Straight Leg Raises Short Arc Quads Education Education Provided Post-Op Packet Safety M7 PT-IP Assessment and Plan Start: 06/05/18 10:23 Freq: NEEDED Status: Active Protocol: Document 06/11/18 09:25 HH (Rec: 06/11/18 11:05 HH [email or web address]) PT Summary Assessment and Plan Summary Assessment Summary SBA for overall mobility and showed improved amb distance. Pt's dtr attended session and educated with stair climbing strategies, gait training for the pt. Pt needed reminder for upwith the good and down with the bad during stair climbing. Pt denies discomfort except pain during session. Pt is now safe to d/c home with dtr assistance and home health therapy will be ideal to cont improve pt's mobility. Goals Bed Mobility Goal Standby Assistance Transfer Goal Standby Assistance Gait Goal Standby Assistance Gait Distance 150 Other Goals up/down 3 steps with R rail ascending and CGA Days to Meet Goals 3 Frequency of Treatment Frequency Of Treatment Discharge Recommendations To Nursing Amount of Assist Needed Standby Assistance Discharge Recommendations PT Discharge Recommendations Home with Assistance Home Health
[2018-06-11 12:00] VITALS: BP 122/67; PULSE 83; RESP 16; TEMP 36.2; O2SAT 93
--- NOTE | 2018-06-11 12:35 | CM.DPC ---
Addendum entered by Shayy Ray LPN 06/11/18 18:10: Checked in several times with Mariann. Adriane continued to say they were reviewing. Yojana checked in throughout the day. Spoke with Yojana again later this afternoon. She noted that her mother seemed fine for d/c home and said she was very comfortable taking her as she had made such excellent progress. Hafsa Larose was updated. PAOLO Bee and PAOLO Hair assisted to get the final paperwork in place and pt want home under Yojana's care as per their original plan. [facility] Mariann was updated. Yojana expressed thankfulness for the great care her mother received. Original Note: DCP: continued: checked in with Mariann/RADHA. She spoke this morning with Gricel and was told case still in review and with a decision expected today. Pt's daughter Yojana was here this morning and was updated. Will keep following. Discussed with hafsa Larose this morning and agreed to call her once decision made so she can d/c pt. Home vs snf today is the plan.
--- NOTE | 2018-06-11 14:46 | PC.NURSE ---
Pt dressed and ready for discharge home with daughter. Prescriptions are in-hand. Went over d/c instructions with Pt and Daughter-discussed d/c meds, time of last dose, s/s of infection, and stroke education. Pt and daughter deny further questions and Pt was taken out via w/c by POV with Daughter and all belongings.
== END 2018-06-11 14:48 | disposition home or self-care (01) | DRG 468 ==
PROVIDERS: Internal Medicine; Admitting Provider Orthopaedic Surgery; PCP Internal Medicine; Visit Provider Orthopaedic Surgery
PROC: 0SPC0JZ Removal of Synthetic Substitute from Right Knee Joint, Open Approach (ICD-10-PCS; principal; 2018-06-04 11:15)
DX: T84.032A Mechanical loosening of internal right knee prosthetic joint, initial encounter (principal); I10 Essential (primary) hypertension; E11.9 Type 2 diabetes mellitus without complications; Z79.84 Long term (current) use of oral hypoglycemic drugs; K21.9 Gastro-esophageal reflux disease without esophagitis; R07.89 Other chest pain; R11.0 Nausea
CPT/HCPCS: 36415; 73560; 80048; 82962; 83735; 84484; 85014; 85018; 85025; 87070; 87075; 87205; 93005; 94760; 94762; 97110; 97116; 97161; 97165; 97530; 97535; C1776; C9290; J0690; J1100; J1170; J2274; J2405; J2704; J3010; J3370